=== PATIENT | female | born 1965 | race Two or more races ===

== ENCOUNTER 2017-03-07 12:44 | Emergency (ER) | payer MEDICAID ==
[~2017-03-07] VITALS: Ht 157.5 cm; Wt 52.2 kg
[~2017-03-07 12:44] MED LIST: ACET500C PO; ASPI81TA27 PO; ATO40T PO; DILT240C10 PO; DOCU100T15 PO; FERR325T PO; FLUO20CA19 PO; GABA-339 PO; HYDR-4663 PO; INSUINJ47 IJ; INSUINJ48 SC; LORA-352 PO; OMEP20TA44 PO; TRIA25CA PO; [UNRECOGNIZED DRUG - CODE] PO
[2017-03-07 13:08] VITALS: BP 201/94
== END 2017-03-07 14:30 | disposition home or self-care (01) ==
LOC: ER 12:44
DX: J20.9 Acute bronchitis, unspecified (principal); S90.121A Contusion of right lesser toe(s) without damage to nail, initial encounter; E11.22 Type 2 diabetes mellitus with diabetic chronic kidney disease; I12.9 Hypertensive chronic kidney disease with stage 1 through stage 4 chronic kidney disease, or unspecified chronic kidney disease; N18.9 Chronic kidney disease, unspecified; Z79.4 Long term (current) use of insulin; I25.10 Atherosclerotic heart disease of native coronary artery without angina pectoris; E78.5 Hyperlipidemia, unspecified; Z90.710 Acquired absence of both cervix and uterus; Z79.82 Long term (current) use of aspirin; Z87.442 Personal history of urinary calculi; X58.XXXA Exposure to other specified factors, initial encounter; Y93.89 Activity, other specified; Y99.8 Other external cause status; Y92.89 Other specified places as the place of occurrence of the external cause
CPT/HCPCS: 73660

== ENCOUNTER 2017-08-03 20:34 | Emergency (ER) | payer MEDICAID ==
[~2017-08-03] VITALS: Ht 127 cm; Wt 49.9 kg
[~2017-08-03 20:34] MED LIST changes: -ACET500C PO; -ASPI81TA27 PO; -ATO40T PO; +ATOR20TA50 PO; +B-CO-6 PO; +CALC667C PO; +CARV12.544 PO; +CHOL20007 PO; -DILT240C10 PO; -DOCU100T15 PO; +FER325T PO; +FLUO-125 PO; -FLUO20CA19 PO; +FOLI1TAB6 PO; +FURO20TA3 PO; -GABA-339 PO; -HYDR-4663 PO; -LORA-352 PO; +NIFE90TA30 PO; -OMEP20TA44 PO; +PANT40T PO; -TRIA25CA PO; -[UNRECOGNIZED DRUG - CODE] PO
[2017-08-03] MEDS ORDERED: cloNIDine HCL 0.1 MG TAB ONE (20:51)
[2017-08-03] MEDS ORDERED: cloNIDine HCL 0.1 MG TAB PO ONE (21:15)
[2017-08-03 21:45] VITALS: BP 203/87
[2017-08-03] MEDS ORDERED: HYDROcodone-ACET 10/325MG TAB PO ONE (22:45)
== END 2017-08-03 23:58 | disposition home or self-care (01) ==
LOC: ER 20:34
DX: S90.121A Contusion of right lesser toe(s) without damage to nail, initial encounter (principal); I25.10 Atherosclerotic heart disease of native coronary artery without angina pectoris; E11.22 Type 2 diabetes mellitus with diabetic chronic kidney disease; I12.0 Hypertensive chronic kidney disease with stage 5 chronic kidney disease or end stage renal disease; N18.6 End stage renal disease; E78.5 Hyperlipidemia, unspecified; Z99.2 Dependence on renal dialysis; Z79.4 Long term (current) use of insulin; W23.0XXA Caught, crushed, jammed, or pinched between moving objects, initial encounter; Y93.89 Activity, other specified; Y92.89 Other specified places as the place of occurrence of the external cause; Y99.8 Other external cause status
CPT/HCPCS: 73660; 99284; L3260; 82962

== ENCOUNTER 2017-08-13 08:56 | Emergency (ER) | payer MEDICAID ==
[~2017-08-13] VITALS: Ht 127 cm; Wt 53.8 kg
[2017-08-13 09:32] VITALS: BP 138/9
[2017-08-13] MEDS ORDERED: ACETAMINOPHEN 500 MG TAB PO ONE (11:00)
[2017-08-13] MEDS ORDERED: ACETAMINOPHEN 650 mg PER 20 mL UD PO ONE (11:15)
== END 2017-08-13 11:04 | disposition home or self-care (01) ==
LOC: ER 08:56
DX: S00.11XA Contusion of right eyelid and periocular area, initial encounter (principal); L03.031 Cellulitis of right toe; I12.9 Hypertensive chronic kidney disease with stage 1 through stage 4 chronic kidney disease, or unspecified chronic kidney disease; E11.22 Type 2 diabetes mellitus with diabetic chronic kidney disease; N18.9 Chronic kidney disease, unspecified; Z86.73 Personal history of transient ischemic attack (TIA), and cerebral infarction without residual deficits; E78.5 Hyperlipidemia, unspecified; Z79.899 Other long term (current) drug therapy; Z79.4 Long term (current) use of insulin; W01.0XXA Fall on same level from slipping, tripping and stumbling without subsequent striking against object, initial encounter; Y93.89 Activity, other specified; Y99.8 Other external cause status; Y92.89 Other specified places as the place of occurrence of the external cause
CPT/HCPCS: 70450; 70486

== ENCOUNTER 2017-09-10 17:10 | Emergency (ER) | payer MEDICAID ==
[~2017-09-10] VITALS: Ht 134.6 cm; Wt 49.9 kg
[2017-09-10] MEDS ORDERED: cloNIDine HCL 0.1 MG TAB ONE (17:34)
[2017-09-10] MEDS ORDERED: cloNIDine HCL 0.1 MG TAB PO ONE (17:45)
[2017-09-10 17:56] VITALS: BP 246/102
[2017-09-10] MEDS ORDERED: IBUPROFEN 600 MG TAB PO ONE (22:45)
== END 2017-09-10 22:49 | disposition home or self-care (01) ==
LOC: ER 17:20
DX: J06.9 Acute upper respiratory infection, unspecified (principal); S80.12XA Contusion of left lower leg, initial encounter; I25.10 Atherosclerotic heart disease of native coronary artery without angina pectoris; E11.22 Type 2 diabetes mellitus with diabetic chronic kidney disease; I12.9 Hypertensive chronic kidney disease with stage 1 through stage 4 chronic kidney disease, or unspecified chronic kidney disease; N18.9 Chronic kidney disease, unspecified; E78.5 Hyperlipidemia, unspecified; M25.562 Pain in left knee; W19.XXXA Unspecified fall, initial encounter; Y93.89 Activity, other specified; Y92.89 Other specified places as the place of occurrence of the external cause; Y99.8 Other external cause status
CPT/HCPCS: 73502; 73562; 73610; 73630

== ENCOUNTER 2017-12-13 01:38 | Inpatient (IN) | payer MEDICAID ==
[~2017-12-13] VITALS: Ht 157.5 cm; Wt 58.4 kg
[~2017-12-13 01:38] MED LIST changes: +FERR-20 PO; -FERR325T PO
[2017-12-13 02:30] LABS: Basophils # (auto) 0.1 uL; Eosinophils # (auto) 0.2 uL; Eosinophils % (auto) 2.4 % (0.0-7.0); Hematocrit 33.3 % (36.0-46.0); Hemoglobin 11.1 g/dL (12.2-16.2); Lymphocytes # (auto) 1.2 uL; Lymphocytes % (auto) 15.3 % (10.0-50.0); Mean Corpuscular Hemoglobin 31.4 pg (28.0-32.0); Mean Corpuscular Hgb Conc. 33.3 g/dL (32.0-36.0); Mean Corpuscular Volume 94.4 fL (80.0-100.0); Monocytes # (auto) 0.5 uL; Monocytes % (auto) 6.7 % (0.0-12.0); Neutrophils # (auto) 6.1 uL; Neutrophils % (auto) 74.6 % (37.0-80.0); Platelet Count (auto) 200 10^3/uL (140-450); Red Blood Cells 3.53 10^6/uL (4.0-5.20); Red Cell Distribution Width 15.4 % (11.8-14.3); White Blood Cell 8.2 10^3/uL (4.4-10.8)
[2017-12-13 02:45] LABS: Calcium 9.1 mg/dL (8.5-10.1); Potassium 4.3 mmol/L (3.5-5.1)
[2017-12-13 02:50] LABS: Albumin 3.5 g/dL (3.4-5.0); BUN/Creatinine Ratio 5.9; Magnesium 2.4 mg/dL (1.6-2.6)
[2017-12-13 02:54] LABS: Bilirubin, Total 0.5 mg/dL (0.2-1.0); Total Protein 8.3 g/dL (6.4-8.2)
[2017-12-13] MEDS ORDERED: SODIUM CHLORIDE 0.9% 1,000 ML IV ONE (07:15)
[2017-12-13] MEDS ORDERED: LEVOFLOXACIN 500MG 100 ML IV ONE (07:15)
[2017-12-13] MEDS ORDERED: VANCOMYCIN PER PHARMACY 0 MG IV SCH (07:45)
[2017-12-13] MEDS ORDERED: DEXTROSE (50%) 50ML SYRG IV PRN (07:45)
[2017-12-13] MEDS ORDERED: ALBUTEROL SULF 2.5 MG/0.5ML(0.5%) NEB SOLN NEB PRN (07:45)
[2017-12-13] MEDS ORDERED: NITROGLYCERIN 0.4 MG SL TAB SL PRN (07:45)
[2017-12-13] MEDS ORDERED: LACTULOSE 20Gm/30ML SOLN PO PRN (07:45)
[2017-12-13] MEDS ORDERED: MORPHINE SULFATE 4 MG/ML SYR/VIAL IV PRN ×2 (07:45→08:45)
[2017-12-13] MEDS ORDERED: PIPERACILLIN-TAZOB 2.25GM 50 ML IV ONE (08:45)
[2017-12-13] MEDS ORDERED: PROMETHAZINE HCL 25 MG/ML 1ML IV PRN (08:45)
[2017-12-13] MEDS ORDERED: LORazepam 0.5 MG TAB PO PRN (08:45)
[2017-12-13] MEDS ORDERED: TEMAZEPAM 15 MG CAP PO PRN (08:45)
[2017-12-13] MEDS ORDERED: ACETAMINOPHEN 500 MG TAB PO PRN (08:45)
[2017-12-13 08:55] VITALS: BP 143/71
[2017-12-13 09:05] VITALS: BP 155/70
[2017-12-13] MEDS ORDERED: OSELTAMIVIR 30 MG CAP PO SCH (10:00)
[2017-12-13] MEDS ORDERED: PATIENTS OWN MEDICATION (Cholecalciferol (Vitamin D3) 1,000 UNIT) PO SCH (10:00)
[2017-12-13] MEDS ORDERED: PATIENTS OWN MEDICATION (Ferrous Sulfate 325 MG) PO SCH (10:00)
[2017-12-13] MEDS: AZITHROMYCIN 500MG/ 250ML 250 ML IV SCH (10:14)
[2017-12-13] MEDS: FOLIC ACID 1 MG TAB PO SCH (10:15)
[2017-12-13] MEDS: FUROSEMIDE 20 MG TAB PO SCH ×2 (10:15→18:00)
[2017-12-13] MEDS: CARVEDILOL 12.5 MG TAB PO SCH ×2 (10:15→22:25)
[2017-12-13] MEDS: PANTOPRAZOLE 40 MG TAB PO SCH ×2 (10:15→22:24)
[2017-12-13] MEDS: B-COMPLEX W/ C & FOLIC ACID(NEPHROVITE TAB) PO SCH (10:15)
[2017-12-13] MEDS: CHOLECALCIFEROL (VITD3) 1,000 UNIT TAB PO SCH (10:16)
[2017-12-13] MEDS: ENOXAPARIN SOD 30 MG/0.3 ML SYRINGE SC SCH (10:16)
[2017-12-13] MEDS: FLUoxetine HCL 20 MG CAP PO SCH (10:16)
[2017-12-13] MEDS: InsuLIN REG 1unit/0.01ml Soln (100units/ml) SC SCH ×3 (11:21→22:00)
[2017-12-13] MEDS: ACCU-CHEK COMFORT CURVE STRIP VI SCH ×3 (11:21→22:00)
[2017-12-13] MEDS ORDERED: ACETAMINOPHEN 500 MG TAB PO ONE (12:00)
[2017-12-13] MEDS ORDERED: VANCOMYCIN 1GM/250ML 250 ML IV ONE (12:00)
[2017-12-13] MEDS: ALBUTEROL SULF 2.5 MG/0.5ML(0.5%) NEB SOLN NEB SCH ×2 (12:10→18:00)
[2017-12-13] MEDS: CALCIUM ACETATE 667 MG CAP PO SCH ×2 (12:25→18:00)
[2017-12-13] MEDS: SODIUM CHLOR 0.9% PF (SALINE LOCK) 10ML VIAL IV SCH ×2 (14:03→22:24)
[2017-12-13] MEDS: FERROUS SULFATE 325 MG TAB PO SCH (18:00)
[2017-12-13] MEDS: LABETALOL HCL 5 MG/ML ML 20ML VIAL IV PRN (19:30)
[2017-12-13 20:00] VITALS: BP 163/75
[2017-12-13] MEDS: PIPERACILLIN-TAZOB 2.25GM 50 ML IV SCH (20:01)
[2017-12-13] MEDS: HYDROcodone-ACET 5/325MG TAB PO PRN (20:02)
[2017-12-13 21:39] VITALS: BP 163/75
[2017-12-13] MEDS ORDERED: PATIENTS OWN MEDICATION (Nifedipine (Nifedipine Er) 1 TAB) PO SCH (22:00)
[2017-12-13] MEDS: ATORVASTATIN 20 MG TAB PO SCH (22:25)
[2017-12-13] MEDS: NIFEdipine ER 30 MG TAB PO SCH (22:26)
[2017-12-14] VITALS (7 sets, daily range): BP systolic 108–140; BP diastolic 61–70
[2017-12-14] MEDS: ALBUTEROL SULF 2.5 MG/0.5ML(0.5%) NEB SOLN NEB SCH ×4 (00:34→18:28)
[2017-12-14] MEDS: LABETALOL HCL 5 MG/ML ML 20ML VIAL IV PRN ×2 (01:43→23:54)
[2017-12-14] MEDS: HYDROcodone-ACET 5/325MG TAB PO PRN ×3 (02:31→21:52)
[2017-12-14 06:17] LABS: Basophils # (auto) 0.1 uL; Basophils % (auto) 0.7 % (0.0-2.0); Eosinophils # (auto) 0.2 uL; Eosinophils % (auto) 2.9 % (0.0-7.0); Hematocrit 30.3 % (36.0-46.0); Hemoglobin 10.1 g/dL (12.2-16.2); Lymphocytes # (auto) 1.2 uL; Lymphocytes % (auto) 14.4 % (10.0-50.0); Mean Corpuscular Hemoglobin 31.6 pg (28.0-32.0); Mean Corpuscular Hgb Conc. 33.5 g/dL (32.0-36.0); Mean Corpuscular Volume 94.3 fL (80.0-100.0); Monocytes # (auto) 0.5 uL; Monocytes % (auto) 6.4 % (0.0-12.0); Neutrophils # (auto) 6.3 uL; Neutrophils % (auto) 75.6 % (37.0-80.0); Nucleated Red Blood Cells % 0.1 %; Platelet Count (auto) 198 10^3/uL (140-450); Red Blood Cells 3.21 10^6/uL (4.0-5.20); Red Cell Distribution Width 14.9 % (11.8-14.3); White Blood Cell 8.3 10^3/uL (4.4-10.8)
[2017-12-14] MEDS: InsuLIN REG 1unit/0.01ml Soln (100units/ml) SC SCH ×4 (06:29→21:58)
[2017-12-14] MEDS: SODIUM CHLOR 0.9% PF (SALINE LOCK) 10ML VIAL IV SCH ×3 (06:29→21:51)
[2017-12-14] MEDS: FUROSEMIDE 20 MG TAB PO SCH ×2 (06:29→17:37)
[2017-12-14] MEDS: ACCU-CHEK COMFORT CURVE STRIP VI SCH ×4 (06:29→21:57)
[2017-12-14 06:36] LABS: Albumin 3.1 g/dL (3.4-5.0); BUN/Creatinine Ratio 6.7; Bilirubin, Total 0.7 mg/dL (0.2-1.0); Calcium 8.9 mg/dL (8.5-10.1); Total Protein 7.5 g/dL (6.4-8.2)
[2017-12-14] MEDS: PIPERACILLIN-TAZOB 2.25GM 50 ML IV SCH ×2 (09:17→20:12)
[2017-12-14] MEDS: FERROUS SULFATE 325 MG TAB PO SCH ×2 (09:17→17:37)
[2017-12-14] MEDS: CALCIUM ACETATE 667 MG CAP PO SCH ×3 (09:17→17:37)
[2017-12-14] MEDS: ENOXAPARIN SOD 30 MG/0.3 ML SYRINGE SC SCH (10:28)
[2017-12-14] MEDS: FLUoxetine HCL 20 MG CAP PO SCH (10:29)
[2017-12-14] MEDS: AZITHROMYCIN 500MG/ 250ML 250 ML IV SCH (10:29)
[2017-12-14] MEDS: CHOLECALCIFEROL (VITD3) 1,000 UNIT TAB PO SCH (10:29)
[2017-12-14] MEDS: PANTOPRAZOLE 40 MG TAB PO SCH ×2 (10:29→21:51)
[2017-12-14] MEDS: CARVEDILOL 12.5 MG TAB PO SCH ×2 (10:29→21:53)
[2017-12-14] MEDS: B-COMPLEX W/ C & FOLIC ACID(NEPHROVITE TAB) PO SCH (10:30)
[2017-12-14] MEDS: FOLIC ACID 1 MG TAB PO SCH (10:30)
[2017-12-14] MEDS: ATORVASTATIN 20 MG TAB PO SCH (21:52)
[2017-12-14] MEDS: NIFEdipine ER 30 MG TAB PO SCH (21:53)
[2017-12-15] MEDS: ALBUTEROL SULF 2.5 MG/0.5ML(0.5%) NEB SOLN NEB SCH ×3 (00:17→12:01)
[2017-12-15] MEDS: HYDROcodone-ACET 5/325MG TAB PO PRN ×2 (04:03→11:25)
[2017-12-15 05:00] VITALS: BP 146/67
[2017-12-15 05:39] LABS: Albumin 2.9 g/dL (3.4-5.0); BUN/Creatinine Ratio 6.7; Potassium 4.8 mmol/L (3.5-5.1)
[2017-12-15 05:42] LABS: Bilirubin, Total 0.6 mg/dL (0.2-1.0)
[2017-12-15] MEDS: SODIUM CHLOR 0.9% PF (SALINE LOCK) 10ML VIAL IV SCH ×2 (06:00→13:56)
[2017-12-15] MEDS: ACCU-CHEK COMFORT CURVE STRIP VI SCH ×2 (06:54→11:25)
[2017-12-15] MEDS: FUROSEMIDE 20 MG TAB PO SCH (06:54)
[2017-12-15] MEDS: InsuLIN REG 1unit/0.01ml Soln (100units/ml) SC SCH ×2 (06:56→11:25)
[2017-12-15] MEDS: PIPERACILLIN-TAZOB 2.25GM 50 ML IV SCH (08:41)
[2017-12-15] MEDS: FERROUS SULFATE 325 MG TAB PO SCH (08:41)
[2017-12-15] MEDS: CALCIUM ACETATE 667 MG CAP PO SCH ×2 (08:41→11:26)
[2017-12-15 09:00] VITALS: BP 136/68
[2017-12-15] MEDS: FLUoxetine HCL 20 MG CAP PO SCH (09:53)
[2017-12-15] MEDS: AZITHROMYCIN 500MG/ 250ML 250 ML IV SCH (09:53)
[2017-12-15] MEDS: B-COMPLEX W/ C & FOLIC ACID(NEPHROVITE TAB) PO SCH (09:53)
[2017-12-15] MEDS: PANTOPRAZOLE 40 MG TAB PO SCH (09:53)
[2017-12-15] MEDS: CHOLECALCIFEROL (VITD3) 1,000 UNIT TAB PO SCH (09:53)
[2017-12-15] MEDS: FOLIC ACID 1 MG TAB PO SCH (09:53)
[2017-12-15] MEDS: ENOXAPARIN SOD 30 MG/0.3 ML SYRINGE SC SCH (09:53)
[2017-12-15] MEDS: CARVEDILOL 12.5 MG TAB PO SCH (09:54)
[2017-12-15 11:50] VITALS: BP 136/68
[2017-12-16 09:56] LABS: Hepatitis B Surface Antibody Positive
[2017-12-16 10:05] LABS: Hepatitis B Surface Antigen Negative (Negative)
[2017-12-16 10:33] LABS: Hepatitis A Total Antibody Positive; Hepatitis C Antibody Negative (Negative)
[2017-12-16 10:34] LABS: Hepatitis B Core Total AB Negative
== END 2017-12-15 14:25 | disposition home or self-care (01) | DRG 139 ==
LOC: ER 01:38 → TELE-WESTW 01:39
PROVIDERS: ADMIT Internal Medicine; ATTEND Internal Medicine
DX: J18.1 Lobar pneumonia, unspecified organism (principal); N18.6 End stage renal disease; E11.22 Type 2 diabetes mellitus with diabetic chronic kidney disease; D63.8 Anemia in other chronic diseases classified elsewhere; I13.11 Hypertensive heart and chronic kidney disease without heart failure, with stage 5 chronic kidney disease, or end stage renal disease; E87.8 Other disorders of electrolyte and fluid balance, not elsewhere classified; E11.65 Type 2 diabetes mellitus with hyperglycemia; E78.5 Hyperlipidemia, unspecified; E87.1 Hypo-osmolality and hyponatremia; F32.9 Major depressive disorder, single episode, unspecified; K59.00 Constipation, unspecified; F41.9 Anxiety disorder, unspecified; G47.00 Insomnia, unspecified; I25.10 Atherosclerotic heart disease of native coronary artery without angina pectoris; N20.0 Calculus of kidney; Z82.49 Family history of ischemic heart disease and other diseases of the circulatory system; Z82.5 Family history of asthma and other chronic lower respiratory diseases; Z83.3 Family history of diabetes mellitus; Z99.2 Dependence on renal dialysis; Z90.49 Acquired absence of other specified parts of digestive tract; Z79.899 Other long term (current) drug therapy; Z79.4 Long term (current) use of insulin
CPT/HCPCS: 36415; 71045; 76705; 80053; 80061; 80202; 82962; 83036; 83605; 83735; 84484; 85025; 86704; 86706; 86708; 86803; 87040; 87340; 87804; 93005; 94640; 96365; 96366; 96367; 99291; J1815; J1956; J2543

== ENCOUNTER 2018-01-06 14:56 | Inpatient (IN) | payer MEDICAID ==
[~2018-01-06] VITALS: Ht 152.4 cm; Wt 56.2 kg
[2018-01-06 16:35] LABS: Basophils # (auto) 0 uL; Basophils % (auto) 0.6 % (0.0-2.0); Eosinophils # (auto) 0.1 uL; Hematocrit 28.1 % (36.0-46.0); Hemoglobin 9.4 g/dL (12.2-16.2); Lymphocytes # (auto) 1.1 uL; Lymphocytes % (auto) 17.4 % (10.0-50.0); Mean Corpuscular Hemoglobin 31.8 pg (28.0-32.0); Mean Corpuscular Hgb Conc. 33.4 g/dL (32.0-36.0); Mean Corpuscular Volume 95.2 fL (80.0-100.0); Monocytes # (auto) 0.5 uL; Monocytes % (auto) 8.1 % (0.0-12.0); Neutrophils # (auto) 4.6 uL; Neutrophils % (auto) 71.9 % (37.0-80.0); Platelet Count (auto) 178 10^3/uL (140-450); Red Blood Cells 2.95 10^6/uL (4.0-5.20); Red Cell Distribution Width 15.5 % (11.8-14.3); White Blood Cell 6.4 10^3/uL (4.4-10.8)
[2018-01-06 16:50] LABS: INR 1.05 (0.9-1.15); Partial Thromboplastin Time 28.9 sec (22.64-33.71); Prothrombin Time 11.4 sec (9.37-12.3)
[2018-01-06 16:59] LABS: Albumin 3.2 g/dL (3.4-5.0); BUN/Creatinine Ratio 5.5; Bilirubin, Total 0.7 mg/dL (0.2-1.0); Calcium 9.2 mg/dL (8.5-10.1); Potassium 4.8 mmol/L (3.5-5.1); Total Protein 7.2 g/dL (6.4-8.2)
[2018-01-06] MEDS ORDERED: cefTRIAXone 1GM/10ml IVPUSH 10 ML IV ONE (18:30)
[2018-01-06] MEDS ORDERED: PANTOPRAZOLE 40 MG/10 ML VIAL IV ONE (18:30)
[2018-01-06] MEDS ORDERED: FAMOTIDINE (10MG/ML) 2ML VL IV ONE (18:30)
[2018-01-06] MEDS ORDERED: DEXTROSE (50%) 50ML SYRG IV PRN (18:30)
[2018-01-06] MEDS ORDERED: TEMAZEPAM 15 MG CAP PO PRN (19:30)
[2018-01-06] MEDS ORDERED: NITROGLYCERIN 0.4 MG SL TAB SL PRN (19:30)
[2018-01-06] MEDS ORDERED: ACETAMINOPHEN 325 MG TAB PO PRN (19:30)
[2018-01-06] MEDS ORDERED: MORPHINE SULFATE 4 MG/ML SYR/VIAL IV PRN (19:30)
[2018-01-06] MEDS: MORPHINE SULFATE 4 MG/ML SYR/VIAL IV PRN (20:20)
[2018-01-06] MEDS: ONDANSETRON HCL 4 MG/2 ML VIAL IV PRN (20:30)
[2018-01-06] MEDS: SODIUM CHLORIDE 0.9% 1,000 ML IV SCH (20:50)
[2018-01-06] MEDS: CARVEDILOL 12.5 MG TAB PO SCH (21:02)
[2018-01-06] MEDS: NIFEdipine ER 30 MG TAB PO SCH (21:03)
[2018-01-06] MEDS: ATORVASTATIN 20 MG TAB PO SCH (21:03)
[2018-01-06] MEDS ORDERED: cloNIDine HCL 0.1 MG TAB PO ONE (21:30)
[2018-01-06] MEDS: ACCU-CHEK COMFORT CURVE STRIP VI SCH (22:00)
[2018-01-06] MEDS: InsuLIN REG 1unit/0.01ml Soln (100units/ml) SC SCH (22:00)
[2018-01-06] MEDS: metroNIDAZOLE 500MG/100ML 100 ML IV SCH (23:57)
[2018-01-07] MEDS: MORPHINE SULFATE 4 MG/ML SYR/VIAL IV PRN ×2 (00:33→20:03)
[2018-01-07] MEDS: FUROSEMIDE 20 MG TAB PO SCH ×2 (05:28→17:07)
[2018-01-07] MEDS: HYDROcodone-ACET 5/325MG TAB PO PRN ×3 (05:29→23:42)
[2018-01-07 05:30] VITALS: BP 95/55
[2018-01-07] MEDS: metroNIDAZOLE 500MG/100ML 100 ML IV SCH (05:44)
[2018-01-07] MEDS: INSULIN NPH Isophane (HUMAN) 1unit/0.01ml Susp(100units/ml) SC SCH ×2 (07:00→17:08)
[2018-01-07] MEDS: InsuLIN REG 1unit/0.01ml Soln (100units/ml) SC SCH ×6 (07:00→22:00)
[2018-01-07 07:03] LABS: Basophils # (auto) 0.1 uL; Eosinophils # (auto) 0.2 uL; Hemoglobin 8.1 g/dL (12.2-16.2); Lymphocytes # (auto) 1.7 uL; Neutrophils # (auto) 2.6 uL
[2018-01-07 07:07] LABS: Basophils % (auto) 1.2 % (0.0-2.0); Eosinophils % (auto) 4.8 % (0.0-7.0); Hematocrit 24.4 % (36.0-46.0); Lymphocytes % (auto) 33.1 % (10.0-50.0); Mean Corpuscular Hemoglobin 31.8 pg (28.0-32.0); Mean Corpuscular Hgb Conc. 33.3 g/dL (32.0-36.0); Mean Corpuscular Volume 95.5 fL (80.0-100.0); Monocytes # (auto) 0.5 uL; Monocytes % (auto) 9.1 % (0.0-12.0); Neutrophils % (auto) 51.8 % (37.0-80.0); Nucleated Red Blood Cells % 0.1 %; Platelet Count (auto) 163 10^3/uL (140-450); Red Blood Cells 2.56 10^6/uL (4.0-5.20); Red Cell Distribution Width 15.5 % (11.8-14.3)
[2018-01-07] MEDS: ACCU-CHEK COMFORT CURVE STRIP VI SCH ×4 (07:08→22:11)
[2018-01-07 07:28] LABS: Albumin 2.7 g/dL (3.4-5.0); BUN/Creatinine Ratio 5.9; Bilirubin, Total 0.5 mg/dL (0.2-1.0); Potassium 4.6 mmol/L (3.5-5.1); Total Protein 6.1 g/dL (6.4-8.2)
[2018-01-07] MEDS: Boost Glucose Control 8 Ounces PO SCH ×2 (08:00→12:00)
[2018-01-07] MEDS ORDERED: cefTRIAXone 1GM/10ml IVPUSH 10 ML IV SCH (09:00)
[2018-01-07 09:27] VITALS: BP 88/49
[2018-01-07] MEDS ORDERED: PANTOPRAZOLE 40 MG/10 ML VIAL IV SCH (10:00)
[2018-01-07] MEDS: FAMOTIDINE (10MG/ML) 2ML VL IV SCH (10:00)
[2018-01-07] MEDS: CARVEDILOL 12.5 MG TAB PO SCH ×2 (10:00→22:17)
[2018-01-07] MEDS: FLUoxetine HCL 20 MG CAP PO SCH (10:05)
[2018-01-07] MEDS: CHOLECALCIFEROL (VITD3) 1,000 UNIT TAB PO SCH (10:05)
[2018-01-07] MEDS: MULTIPLE VITAMIN TAB PO SCH (10:06)
[2018-01-07] MEDS: FOLIC ACID 1 MG TAB PO SCH (10:06)
[2018-01-07] MEDS: B-COMPLEX W/ C & FOLIC ACID(NEPHROVITE TAB) PO SCH (10:06)
[2018-01-07] MEDS: FERROUS SULFATE 325 MG TAB PO SCH ×2 (10:12→17:59)
[2018-01-07] MEDS: CALCIUM ACETATE 667 MG CAP PO SCH ×3 (10:12→17:59)
[2018-01-07 10:15] VITALS: BP 102/58
[2018-01-07] MEDS: ONDANSETRON HCL 4 MG/2 ML VIAL IV PRN (10:54)
[2018-01-07] MEDS: SODIUM CHLORIDE 0.9% 1,000 ML IV SCH (12:07)
[2018-01-07 13:10] VITALS: BP 105/62
[2018-01-07 16:54] VITALS: BP 103/57
[2018-01-07 21:24] LABS: Urine Bacteria NONE SEEN /hpf (None Seen); Urine Blood Negative /uL (Negative); Urine Mucus FEW (None Seen); Urine Specific Gravity 1.016 (1.001-1.035); Urine WBC 8 /hpf (0 - 5)
[2018-01-07 22:00] VITALS: BP 127/62
[2018-01-07] MEDS: NIFEdipine ER 30 MG TAB PO SCH (22:00)
[2018-01-07] MEDS: ATORVASTATIN 20 MG TAB PO SCH (22:17)
[2018-01-07] MEDS: PANTOPRAZOLE 40 MG TAB PO SCH (22:18)
[2018-01-08] VITALS (7 sets, daily range): BP systolic 126–205; BP diastolic 66–92
[2018-01-08] MEDS: cloNIDine HCL 0.1 MG TAB PO PRN ×3 (04:38→18:04)
[2018-01-08] MEDS: HYDROcodone-ACET 5/325MG TAB PO PRN ×3 (04:39→20:07)
[2018-01-08] MEDS: SODIUM CHLORIDE 0.9% 1,000 ML IV SCH ×2 (04:47→21:27)
[2018-01-08] MEDS: InsuLIN REG 1unit/0.01ml Soln (100units/ml) SC SCH ×6 (06:39→22:00)
[2018-01-08] MEDS: ACCU-CHEK COMFORT CURVE STRIP VI SCH ×4 (06:40→22:48)
[2018-01-08] MEDS: INSULIN NPH Isophane (HUMAN) 1unit/0.01ml Susp(100units/ml) SC SCH ×2 (06:40→18:00)
[2018-01-08] MEDS: FUROSEMIDE 20 MG TAB PO SCH ×2 (06:53→18:27)
[2018-01-08] MEDS: CALCIUM ACETATE 667 MG CAP PO SCH ×3 (08:00→18:27)
[2018-01-08] MEDS: FERROUS SULFATE 325 MG TAB PO SCH ×2 (08:00→18:27)
[2018-01-08] MEDS: CARVEDILOL 12.5 MG TAB PO SCH ×2 (08:21→22:46)
[2018-01-08] MEDS ORDERED: FLUMAZENIL 0.1 MG/ML INJ 10ML MDV IV ONE (08:37)
[2018-01-08] MEDS ORDERED: NALOXONE HCL 0.4 MG/ML VIAL ONE (08:37)
[2018-01-08] MEDS ORDERED: LIDOCAINE VISCOUS 2% 15ML UD ONE (08:37)
[2018-01-08] MEDS ORDERED: diphenhdrAMINE HCL 50 MG/1 ML VL ONE (08:37)
[2018-01-08] MEDS: FAMOTIDINE (10MG/ML) 2ML VL IV SCH (10:00)
[2018-01-08] MEDS: CHOLECALCIFEROL (VITD3) 1,000 UNIT TAB PO SCH (10:00)
[2018-01-08] MEDS: FLUoxetine HCL 20 MG CAP PO SCH (10:00)
[2018-01-08] MEDS: B-COMPLEX W/ C & FOLIC ACID(NEPHROVITE TAB) PO SCH (10:00)
[2018-01-08] MEDS: PANTOPRAZOLE 40 MG TAB PO SCH ×2 (10:00→22:46)
[2018-01-08] MEDS: FOLIC ACID 1 MG TAB PO SCH (10:00)
[2018-01-08] MEDS: MULTIPLE VITAMIN TAB PO SCH (10:00)
[2018-01-08] MEDS ORDERED: NIFEdipine ER 30 MG TAB PO ONE (10:15)
[2018-01-08] MEDS ORDERED: EPOETIN ALFA 10,000 UNIT/1 ML VIAL IV ONE (11:30)
[2018-01-08] MEDS ORDERED: HEPARIN 1,000 UNITS/ml 1ML VIAL IV ONE (11:30)
[2018-01-08] MEDS ORDERED: MORPHINE SULFATE 8mg/ml INJ SDV IV PRN (18:15)
[2018-01-08] MEDS: MORPHINE SULFATE 8mg/ml INJ SDV IV PRN (18:19)
[2018-01-08] MEDS: NIFEdipine ER 30 MG TAB PO SCH (22:45)
[2018-01-08] MEDS: ATORVASTATIN 20 MG TAB PO SCH (22:45)
[2018-01-09 05:22] VITALS: BP 108/55
[2018-01-09] MEDS: FUROSEMIDE 20 MG TAB PO SCH ×2 (06:00→17:59)
[2018-01-09 06:36] LABS: Basophils # (auto) 0 uL; Basophils % (auto) 0.7 % (0.0-2.0); Eosinophils # (auto) 0.1 uL; Eosinophils % (auto) 2.5 % (0.0-7.0); Hematocrit 27.1 % (36.0-46.0); Lymphocytes # (auto) 0.8 uL; Mean Corpuscular Hemoglobin 31.1 pg (28.0-32.0); Mean Corpuscular Volume 94.1 fL (80.0-100.0); Monocytes # (auto) 0.4 uL; Monocytes % (auto) 7.3 % (0.0-12.0); Neutrophils # (auto) 3.8 uL; Neutrophils % (auto) 74.5 % (37.0-80.0); Platelet Count (auto) 167 10^3/uL (140-450); Red Blood Cells 2.88 10^6/uL (4.0-5.20); Red Cell Distribution Width 14.8 % (11.8-14.3); White Blood Cell 5.1 10^3/uL (4.4-10.8)
[2018-01-09 06:53] LABS: BUN/Creatinine Ratio 5.4; Calcium 8.3 mg/dL (8.5-10.1); Potassium 4.7 mmol/L (3.5-5.1)
[2018-01-09] MEDS: ACCU-CHEK COMFORT CURVE STRIP VI SCH ×3 (07:00→17:00)
[2018-01-09] MEDS: InsuLIN REG 1unit/0.01ml Soln (100units/ml) SC SCH ×6 (07:00→21:43)
[2018-01-09] MEDS: INSULIN NPH Isophane (HUMAN) 1unit/0.01ml Susp(100units/ml) SC SCH ×2 (07:00→18:00)
[2018-01-09] MEDS: CALCIUM ACETATE 667 MG CAP PO SCH ×3 (08:00→17:57)
[2018-01-09] MEDS: FERROUS SULFATE 325 MG TAB PO SCH ×2 (08:00→17:57)
[2018-01-09] MEDS ORDERED: NALOXONE HCL 0.4 MG/ML VIAL ONE (08:34)
[2018-01-09] MEDS ORDERED: FLUMAZENIL 0.1 MG/ML INJ 10ML MDV IV ONE (08:34)
[2018-01-09] MEDS ORDERED: LIDOCAINE VISCOUS 2% 15ML UD ONE (08:34)
[2018-01-09] MEDS ORDERED: MIDAZOLAM HCL 5 MG/ML-1ML VIAL ONE (08:35)
[2018-01-09] MEDS ORDERED: diphenhdrAMINE HCL 50 MG/1 ML VL ONE (08:35)
[2018-01-09] MEDS ORDERED: fentaNYL CITRATE 100 MCG/2 ML VL ONE (08:35)
[2018-01-09 09:00] VITALS: BP 120/64
[2018-01-09] MEDS: fentaNYL CITRATE 100 MCG/2 ML VL ONE ×2 (09:22→09:29)
[2018-01-09] MEDS: MIDAZOLAM HCL 5 MG/ML-1ML VIAL ONE ×2 (09:22→09:29)
[2018-01-09] MEDS ORDERED: METOCLOPRAMIDE HCL 5MG/ml INJ 2ml VIAL IV SCH (10:00)
[2018-01-09] MEDS: B-COMPLEX W/ C & FOLIC ACID(NEPHROVITE TAB) PO SCH (11:18)
[2018-01-09] MEDS: FOLIC ACID 1 MG TAB PO SCH (11:19)
[2018-01-09] MEDS: CARVEDILOL 12.5 MG TAB PO SCH ×2 (11:19→21:40)
[2018-01-09] MEDS: PANTOPRAZOLE 40 MG TAB PO SCH ×2 (11:20→21:40)
[2018-01-09] MEDS: CHOLECALCIFEROL (VITD3) 1,000 UNIT TAB PO SCH (11:20)
[2018-01-09] MEDS: FLUoxetine HCL 20 MG CAP PO SCH (11:20)
[2018-01-09] MEDS: MULTIPLE VITAMIN TAB PO SCH (11:20)
[2018-01-09] MEDS: METOCLOPRAMIDE HCL 10 MG TAB PO PRN (11:40)
[2018-01-09] MEDS: HYDROcodone-ACET 5/325MG TAB PO PRN ×2 (11:41→16:39)
[2018-01-09 13:00] VITALS: BP 142/69
[2018-01-09] MEDS: SODIUM CHLORIDE 0.9% 1,000 ML IV SCH (14:07)
[2018-01-09 17:49] VITALS: BP 85/49
[2018-01-09] MEDS: MORPHINE SULFATE 8mg/ml INJ SDV IV PRN (21:31)
[2018-01-09] MEDS: ATORVASTATIN 20 MG TAB PO SCH (21:40)
[2018-01-09] MEDS: NIFEdipine ER 30 MG TAB PO SCH (21:43)
[2018-01-09 22:00] VITALS: BP 109/55
[2018-01-10] VITALS (7 sets, daily range): BP systolic 132–195; BP diastolic 66–85
[2018-01-10] MEDS: ACCU-CHEK COMFORT CURVE STRIP VI SCH ×5 (04:30→22:13)
[2018-01-10] MEDS: MORPHINE SULFATE 8mg/ml INJ SDV IV PRN ×3 (04:48→14:48)
[2018-01-10] MEDS: FUROSEMIDE 20 MG TAB PO SCH ×2 (05:46→18:01)
[2018-01-10] MEDS: SODIUM CHLORIDE 0.9% 1,000 ML IV SCH ×2 (06:47→23:27)
[2018-01-10] MEDS: InsuLIN REG 1unit/0.01ml Soln (100units/ml) SC SCH ×6 (06:51→22:13)
[2018-01-10] MEDS: INSULIN NPH Isophane (HUMAN) 1unit/0.01ml Susp(100units/ml) SC SCH ×2 (06:52→17:14)
[2018-01-10 07:20] LABS: Basophils # (auto) 0 uL; Basophils % (auto) 0.6 % (0.0-2.0); Eosinophils # (auto) 0.1 uL; Eosinophils % (auto) 2.4 % (0.0-7.0); Hematocrit 25.9 % (36.0-46.0); Hemoglobin 8.7 g/dL (12.2-16.2); Lymphocytes # (auto) 1.3 uL; Lymphocytes % (auto) 25.1 % (10.0-50.0); Mean Corpuscular Hemoglobin 31.9 pg (28.0-32.0); Mean Corpuscular Hgb Conc. 33.4 g/dL (32.0-36.0); Mean Corpuscular Volume 95.4 fL (80.0-100.0); Monocytes # (auto) 0.5 uL; Monocytes % (auto) 9.9 % (0.0-12.0); Neutrophils # (auto) 3.2 uL; Nucleated Red Blood Cells % 0.1 %; Platelet Count (auto) 155 10^3/uL (140-450); Red Blood Cells 2.72 10^6/uL (4.0-5.20); Red Cell Distribution Width 14.9 % (11.8-14.3); White Blood Cell 5.2 10^3/uL (4.4-10.8)
[2018-01-10 07:27] LABS: BUN/Creatinine Ratio 6.1; Calcium 8.6 mg/dL (8.5-10.1)
[2018-01-10 07:33] LABS: Potassium 5.7 mmol/L (3.5-5.1)
[2018-01-10] MEDS: CALCIUM ACETATE 667 MG CAP PO SCH ×3 (08:20→18:01)
[2018-01-10] MEDS: FERROUS SULFATE 325 MG TAB PO SCH ×2 (08:20→18:00)
[2018-01-10] MEDS: FOLIC ACID 1 MG TAB PO SCH (09:27)
[2018-01-10] MEDS: B-COMPLEX W/ C & FOLIC ACID(NEPHROVITE TAB) PO SCH (09:27)
[2018-01-10] MEDS: MULTIPLE VITAMIN TAB PO SCH (09:27)
[2018-01-10] MEDS: PANTOPRAZOLE 40 MG TAB PO SCH ×2 (09:28→22:12)
[2018-01-10] MEDS: FLUoxetine HCL 20 MG CAP PO SCH (09:28)
[2018-01-10] MEDS: CHOLECALCIFEROL (VITD3) 1,000 UNIT TAB PO SCH (09:28)
[2018-01-10] MEDS: METOCLOPRAMIDE HCL 10 MG TAB PO PRN (09:29)
[2018-01-10] MEDS: CARVEDILOL 12.5 MG TAB PO SCH ×2 (10:00→22:11)
[2018-01-10] MEDS ORDERED: EPOETIN ALFA 10,000 UNIT/1 ML VIAL IV ONE (13:30)
[2018-01-10] MEDS ORDERED: SODIUM CHL 0.9% 1000 ML BAG XX ONE (13:30)
[2018-01-10] MEDS: cloNIDine HCL 0.1 MG TAB PO PRN (18:02)
[2018-01-10] MEDS: ATORVASTATIN 20 MG TAB PO SCH (22:11)
[2018-01-10] MEDS: NIFEdipine ER 30 MG TAB PO SCH (22:12)
[2018-01-10] MEDS: HYDROcodone-ACET 5/325MG TAB PO PRN (22:12)
[2018-01-11 00:30] VITALS: BP 193/88
[2018-01-11] MEDS: cloNIDine HCL 0.1 MG TAB PO PRN ×2 (00:55→01:01)
[2018-01-11] MEDS: MORPHINE SULFATE 8mg/ml INJ SDV IV PRN (01:02)
[2018-01-11 01:50] VITALS: BP 208/98
[2018-01-11 02:00] VITALS: BP 200/90
[2018-01-11] MEDS ORDERED: LABETALOL HCL 5 MG/ML ML 20ML VIAL IV ONE (02:15)
[2018-01-11] MEDS ORDERED: LABETALOL HCL 5 MG/ML 4ML SYRINGE IV ONE (02:35)
[2018-01-11 05:00] VITALS: BP 178/80
[2018-01-11] MEDS: FUROSEMIDE 20 MG TAB PO SCH (06:46)
[2018-01-11] MEDS: InsuLIN REG 1unit/0.01ml Soln (100units/ml) SC SCH ×2 (07:00→08:00)
[2018-01-11] MEDS: INSULIN NPH Isophane (HUMAN) 1unit/0.01ml Susp(100units/ml) SC SCH (07:08)
[2018-01-11] MEDS: ACCU-CHEK COMFORT CURVE STRIP VI SCH (07:09)
[2018-01-11 07:32] LABS: Basophils # (auto) 0 uL; Basophils % (auto) 0.7 % (0.0-2.0); Eosinophils # (auto) 0.1 uL; Eosinophils % (auto) 2.1 % (0.0-7.0); Hematocrit 26.3 % (36.0-46.0); Hemoglobin 8.8 g/dL (12.2-16.2); Lymphocytes # (auto) 1.3 uL; Lymphocytes % (auto) 23.3 % (10.0-50.0); Mean Corpuscular Hemoglobin 31.6 pg (28.0-32.0); Mean Corpuscular Hgb Conc. 33.4 g/dL (32.0-36.0); Mean Corpuscular Volume 94.6 fL (80.0-100.0); Monocytes # (auto) 0.5 uL; Monocytes % (auto) 8.2 % (0.0-12.0); Neutrophils # (auto) 3.7 uL; Neutrophils % (auto) 65.7 % (37.0-80.0); Platelet Count (auto) 164 10^3/uL (140-450); Red Blood Cells 2.79 10^6/uL (4.0-5.20); Red Cell Distribution Width 14.9 % (11.8-14.3); White Blood Cell 5.6 10^3/uL (4.4-10.8)
[2018-01-11 08:22] VITALS: BP 152/76
[2018-01-11 08:43] LABS: BUN/Creatinine Ratio 5.1; Calcium 8.8 mg/dL (8.5-10.1); Potassium 4.9 mmol/L (3.5-5.1)
[2018-01-11] MEDS: FERROUS SULFATE 325 MG TAB PO SCH (08:43)
[2018-01-11] MEDS: CALCIUM ACETATE 667 MG CAP PO SCH (08:43)
[2018-01-11 09:00] LABS: Bilirubin, Direct 0.1 mg/dL (0-0.2); Bilirubin, Total 0.4 mg/dL (0.2-1.0); Total Protein 7.1 g/dL (6.4-8.2)
[2018-01-11 10:16] VITALS: BP 178/80
[2018-01-11] MEDS: CARVEDILOL 12.5 MG TAB PO SCH (10:52)
[2018-01-11] MEDS: MULTIPLE VITAMIN TAB PO SCH (10:52)
[2018-01-11] MEDS: B-COMPLEX W/ C & FOLIC ACID(NEPHROVITE TAB) PO SCH (10:52)
[2018-01-11] MEDS: FLUoxetine HCL 20 MG CAP PO SCH (10:52)
[2018-01-11] MEDS: FOLIC ACID 1 MG TAB PO SCH (10:53)
[2018-01-11] MEDS: CHOLECALCIFEROL (VITD3) 1,000 UNIT TAB PO SCH (10:53)
[2018-01-11] MEDS: PANTOPRAZOLE 40 MG TAB PO SCH (10:53)
== END 2018-01-11 12:46 | disposition home or self-care (01) | DRG 241 ==
LOC: ER 15:04 → TELE 15:05 → TELE-CENTR 22:05
PROVIDERS: ADMIT Internal Medicine; ATTEND Internal Medicine
PROC: 5A1D70Z Performance of Urinary Filtration, Intermittent, Less than 6 Hours Per Day (ICD-10-PCS; 2018-01-08)
PROC: 0DB68ZX Excision of Stomach, Via Natural or Artificial Opening Endoscopic, Diagnostic (ICD-10-PCS; principal; 2018-01-09 09:18)
PROC: 5A1D70Z Performance of Urinary Filtration, Intermittent, Less than 6 Hours Per Day (ICD-10-PCS; 2018-01-10)
DX: K29.70 Gastritis, unspecified, without bleeding (principal); J90 Pleural effusion, not elsewhere classified; N18.6 End stage renal disease; E44.0 Moderate protein-calorie malnutrition; K31.84 Gastroparesis; E11.21 Type 2 diabetes mellitus with diabetic nephropathy; E11.43 Type 2 diabetes mellitus with diabetic autonomic (poly)neuropathy; E88.09 Other disorders of plasma-protein metabolism, not elsewhere classified; E87.5 Hyperkalemia; I13.11 Hypertensive heart and chronic kidney disease without heart failure, with stage 5 chronic kidney disease, or end stage renal disease; K52.9 Noninfective gastroenteritis and colitis, unspecified; E11.22 Type 2 diabetes mellitus with diabetic chronic kidney disease; D63.1 Anemia in chronic kidney disease; E11.319 Type 2 diabetes mellitus with unspecified diabetic retinopathy without macular edema; E86.0 Dehydration; E78.5 Hyperlipidemia, unspecified; F32.9 Major depressive disorder, single episode, unspecified; K57.30 Diverticulosis of large intestine without perforation or abscess without bleeding; R74.8 Abnormal levels of other serum enzymes; J98.11 Atelectasis; I25.10 Atherosclerotic heart disease of native coronary artery without angina pectoris; Z99.2 Dependence on renal dialysis; Z90.49 Acquired absence of other specified parts of digestive tract; Z79.899 Other long term (current) drug therapy; Z68.24 Body mass index [BMI] 24.0-24.9, adult
CPT/HCPCS: 36415; 43239; 71045; 74176; 74181; 80048; 80053; 80076; 81001; 82962; 83036; 83690; 84443; 84484; 85025; 85610; 85730; 87040; 87045; 87081; 87086; 87493; 87899; 90935; 93005; 93306; 96374; 96375; 97163; 99291; C9113; J0885; J1642; J1815; J2250; J2270; J2405; J3490

== ENCOUNTER 2018-02-13 12:43 | Inpatient (IN) | payer MEDICAID ==
[~2018-02-13] VITALS: Ht 157.5 cm; Wt 51.1 kg
[2018-02-13] MEDS ORDERED: LEVOFLOXACIN 500MG 100 ML IV ONE (13:00)
[2018-02-13 13:40] LABS: Basophils # (auto) 0.1 uL; Basophils % (auto) 1.2 % (0.0-2.0); Eosinophils # (auto) 0.2 uL; Eosinophils % (auto) 2.1 % (0.0-7.0); Hematocrit 37.1 % (36.0-46.0); Hemoglobin 11.9 g/dL (12.2-16.2); Lymphocytes # (auto) 1.6 uL; Mean Corpuscular Hemoglobin 30.1 pg (28.0-32.0); Mean Corpuscular Hgb Conc. 32.1 g/dL (32.0-36.0); Monocytes # (auto) 0.4 uL; Monocytes % (auto) 5.5 % (0.0-12.0); Neutrophils # (auto) 5.4 uL; Neutrophils % (auto) 70.2 % (37.0-80.0); Platelet Count (auto) 196 10^3/uL (140-450); Red Blood Cells 3.94 10^6/uL (4.0-5.20); White Blood Cell 7.7 10^3/uL (4.4-10.8)
[2018-02-13 14:01] LABS: Albumin 3.6 g/dL (3.4-5.0); BUN/Creatinine Ratio 4.7; Bilirubin, Total 0.8 mg/dL (0.2-1.0); Magnesium 2.8 mg/dL (1.6-2.6); Potassium 4.1 mmol/L (3.5-5.1); Total Protein 8.1 g/dL (6.4-8.2)
[2018-02-13] MEDS ORDERED: FUROSEMIDE 40 MG/4 ML VIAL IV ONE ×2 (14:30→15:45)
[2018-02-13] MEDS ORDERED: PROMETHAZINE HCL 25 MG/ML 1ML IV PRN (15:45)
[2018-02-13] MEDS ORDERED: ACETAMINOPHEN 500 MG TAB PO PRN (15:45)
[2018-02-13] MEDS ORDERED: TEMAZEPAM 15 MG CAP PO PRN (15:45)
[2018-02-13] MEDS ORDERED: LACTULOSE 20Gm/30ML SOLN PO PRN (15:45)
[2018-02-13] MEDS ORDERED: NITROGLYCERIN 0.4 MG SL TAB SL PRN (15:45)
[2018-02-13] MEDS ORDERED: LORazepam 0.5 MG TAB PO PRN (15:45)
[2018-02-13] MEDS ORDERED: DEXTROSE (50%) 50ML SYRG IV PRN (15:45)
[2018-02-13] MEDS ORDERED: MORPHINE SULFATE 4 MG/ML SYR/VIAL IV PRN (15:45)
[2018-02-13] MEDS ORDERED: CARVEDILOL 12.5 MG TAB PO ONE (16:30)
[2018-02-13] MEDS ORDERED: NIFEdipine ER 30 MG TAB PO ONE (16:30)
[2018-02-13] MEDS ORDERED: LOSARTAN POTASSIUM 50 MG TAB PO ONE (16:30)
[2018-02-13] MEDS ORDERED: LABETALOL HCL 5 MG/ML ML 20ML VIAL IV ONE (16:30)
[2018-02-13 16:31] LABS: CRP High Sensitivity 0.1 mg/dL (< 0.3)
[2018-02-13] MEDS: FAMOTIDINE 20 MG TAB PO SCH (16:50)
[2018-02-13] MEDS: CALCIUM ACETATE 667 MG CAP PO SCH (16:50)
[2018-02-13] MEDS: ACCU-CHEK COMFORT CURVE STRIP VI SCH ×2 (16:52→21:57)
[2018-02-13] MEDS: InsuLIN REG 1unit/0.01ml Soln (100units/ml) SC SCH ×2 (16:52→21:57)
[2018-02-13] MEDS: HYDROcodone-ACET 5/325MG TAB PO PRN (17:26)
[2018-02-13] MEDS ORDERED: FERROUS SULFATE 325 MG TAB PO SCH (18:00)
[2018-02-13] MEDS ORDERED: FUROSEMIDE 20 MG TAB PO SCH (18:00)
[2018-02-13 20:00] VITALS: BP 162/65
[2018-02-13] MEDS: MORPHINE SULFATE 4 MG/ML SYR/VIAL IV PRN (20:15)
[2018-02-13] MEDS: PANTOPRAZOLE 40 MG TAB PO SCH (21:55)
[2018-02-13] MEDS: FERROUS SULFATE 325 MG TAB PO SCH (21:56)
[2018-02-13] MEDS: CARVEDILOL 12.5 MG TAB PO SCH (21:57)
[2018-02-13] MEDS ORDERED: ATORVASTATIN 20 MG TAB PO SCH (22:00)
[2018-02-13] MEDS ORDERED: NIFEdipine ER 30 MG TAB PO SCH (22:00)
[2018-02-13 22:53] VITALS: BP 129/62
[2018-02-14] MEDS ORDERED: ATOR1TAB PO (00:42)
[2018-02-14] MEDS ORDERED: CHOL100040 PO (00:42)
[2018-02-14] MEDS ORDERED: FLUO40CA PO (00:53)
[2018-02-14] MEDS ORDERED: LOSA50TA6 PO (00:53)
[2018-02-14] MEDS ORDERED: B-CO-6 PO (00:53)
[2018-02-14] MEDS: HYDROcodone-ACET 5/325MG TAB PO PRN ×2 (02:25→14:35)
[2018-02-14] MEDS: MORPHINE SULFATE 4 MG/ML SYR/VIAL IV PRN (05:40)
[2018-02-14] MEDS: FUROSEMIDE 40 MG/4 ML VIAL IV SCH ×2 (05:40→17:57)
[2018-02-14 05:44] VITALS: BP 122/58
[2018-02-14 05:49] LABS: Basophils # (auto) 0.1 uL; Basophils % (auto) 1.2 % (0.0-2.0); Eosinophils # (auto) 0.2 uL; Eosinophils % (auto) 3.7 % (0.0-7.0); Hematocrit 36.3 % (36.0-46.0); Hemoglobin 11.8 g/dL (12.2-16.2); Lymphocytes # (auto) 1.9 uL; Lymphocytes % (auto) 31.5 % (10.0-50.0); Mean Corpuscular Hemoglobin 30.7 pg (28.0-32.0); Mean Corpuscular Hgb Conc. 32.6 g/dL (32.0-36.0); Mean Corpuscular Volume 93.9 fL (80.0-100.0); Monocytes # (auto) 0.4 uL; Monocytes % (auto) 6.8 % (0.0-12.0); Neutrophils # (auto) 3.4 uL; Neutrophils % (auto) 56.8 % (37.0-80.0); Platelet Count (auto) 200 10^3/uL (140-450); Red Blood Cells 3.86 10^6/uL (4.0-5.20); Red Cell Distribution Width 16.3 % (11.8-14.3)
[2018-02-14 06:00] VITALS: BP 123/59
[2018-02-14 06:17] LABS: Albumin 3.1 g/dL (3.4-5.0); Calcium 9.9 mg/dL (8.5-10.1); Potassium 4.3 mmol/L (3.5-5.1)
[2018-02-14 06:20] LABS: BUN/Creatinine Ratio 5.4
[2018-02-14 06:22] LABS: Bilirubin, Total 0.6 mg/dL (0.2-1.0); Total Protein 7.2 g/dL (6.4-8.2)
[2018-02-14] MEDS: InsuLIN REG 1unit/0.01ml Soln (100units/ml) SC SCH ×3 (06:53→17:00)
[2018-02-14] MEDS: ACCU-CHEK COMFORT CURVE STRIP VI SCH ×3 (06:53→17:57)
[2018-02-14] MEDS ORDERED: INSULIN NPH Isophane (HUMAN) 1unit/0.01ml Susp(100units/ml) SC SCH (07:00)
[2018-02-14] MEDS: CALCIUM ACETATE 667 MG CAP PO SCH ×3 (07:45→17:55)
[2018-02-14 09:00] VITALS: BP 123/59
[2018-02-14] MEDS: FERROUS SULFATE 325 MG TAB PO SCH (09:29)
[2018-02-14] MEDS: FAMOTIDINE 20 MG TAB PO SCH (09:30)
[2018-02-14] MEDS: PANTOPRAZOLE 40 MG TAB PO SCH (09:30)
[2018-02-14] MEDS: CARVEDILOL 12.5 MG TAB PO SCH (09:31)
[2018-02-14] MEDS ORDERED: B-COMPLEX W/ C & FOLIC ACID(NEPHROVITE TAB) PO SCH (10:00)
[2018-02-14] MEDS ORDERED: CHOLECALCIFEROL (VITD3) 1,000 UNIT TAB PO SCH (10:00)
[2018-02-14] MEDS ORDERED: NITROGLYCERIN 0.2MG/HR TOPICAL PATCH TD SCH (10:00)
[2018-02-14] MEDS ORDERED: FOLIC ACID 1 MG TAB PO SCH (10:00)
[2018-02-14] MEDS ORDERED: FLUoxetine HCL 20 MG CAP PO SCH (10:00)
[2018-02-14] MEDS ORDERED: ENOXAPARIN SOD 30 MG/0.3 ML SYRINGE SC SCH (10:00)
[2018-02-14 10:07] LABS: Alcohol, Urine < 3.0 mg/dL (0-5); Amphetamine Screen, Urine NEGATIVE (NEGATIVE); Barbiturate Scree,Urine NEGATIVE (NEGATIVE); Benzodiazephine Screen, Urine NEGATIVE (NEGATIVE); Cannabinoid Screen, Urine NEGATIVE (NEGATIVE); Cocaine Screen, Urine NEGATIVE (NEGATIVE); Opiate Scree,Urine POSITIVE (NEGATIVE); Phencyclidine Screen, Urine NEGATIVE (NEGATIVE)
[2018-02-14 13:00] VITALS: BP 147/69
[2018-02-14 16:15] VITALS: BP 127/66
[2018-02-14 16:25] VITALS: BP 147/80
[2018-02-14] MEDS ORDERED: MORPHINE SULFATE 8mg/ml INJ SDV IV PRN ×2 (17:45)
== END 2018-02-14 18:40 | disposition home or self-care (01) | DRG 194 ==
LOC: ER 12:49 → TELE 12:50 → TELE-WESTW 20:32
PROVIDERS: ADMIT Internal Medicine; ATTEND Internal Medicine
PROC: 5A1D70Z Performance of Urinary Filtration, Intermittent, Less than 6 Hours Per Day (ICD-10-PCS; principal; 2018-02-14)
DX: I13.2 Hypertensive heart and chronic kidney disease with heart failure and with stage 5 chronic kidney disease, or end stage renal disease (principal); N18.6 End stage renal disease; E11.22 Type 2 diabetes mellitus with diabetic chronic kidney disease; D63.8 Anemia in other chronic diseases classified elsewhere; E78.5 Hyperlipidemia, unspecified; I25.10 Atherosclerotic heart disease of native coronary artery without angina pectoris; F32.9 Major depressive disorder, single episode, unspecified; R74.8 Abnormal levels of other serum enzymes; R79.89 Other specified abnormal findings of blood chemistry; K59.00 Constipation, unspecified; F41.9 Anxiety disorder, unspecified; I50.9 Heart failure, unspecified; Z99.2 Dependence on renal dialysis; Z82.49 Family history of ischemic heart disease and other diseases of the circulatory system; Z82.5 Family history of asthma and other chronic lower respiratory diseases; Z83.3 Family history of diabetes mellitus; Z90.49 Acquired absence of other specified parts of digestive tract; Z87.01 Personal history of pneumonia (recurrent); Z79.899 Other long term (current) drug therapy
CPT/HCPCS: 36415; 71045; 80053; 80061; 80307; 82150; 82550; 82962; 83036; 83605; 83690; 83735; 83880; 84443; 84484; 85025; 85652; 86141; 87040; 87081; 90935; 93005; 96365; 96375; J1956

== ENCOUNTER 2018-03-01 11:04 | Inpatient (IN) | payer MEDICAID ==
[~2018-03-01] VITALS: Ht 127 cm; Wt 56.6 kg
[~2018-03-01 11:04] MED LIST changes: +ATOR1TAB PO; -ATOR20TA50 PO; +CHOL100040 PO; -CHOL20007 PO; -FLUO-125 PO; +FLUO40CA PO; +LOSA50TA6 PO
[2018-03-01] MEDS ORDERED: cloNIDine HCL 0.1 MG TAB PO ONE (11:45)
[2018-03-01 11:56] LABS: Basophils # (auto) 0.1 uL; Basophils % (auto) 1.1 % (0.0-2.0); Eosinophils # (auto) 0.1 uL; Eosinophils % (auto) 1.9 % (0.0-7.0); Hematocrit 35.4 % (36.0-46.0); Hemoglobin 11.5 g/dL (12.2-16.2); Lymphocytes # (auto) 1.6 uL; Lymphocytes % (auto) 22.7 % (10.0-50.0); Mean Corpuscular Hemoglobin 30.2 pg (28.0-32.0); Mean Corpuscular Hgb Conc. 32.6 g/dL (32.0-36.0); Mean Corpuscular Volume 92.5 fL (80.0-100.0); Monocytes # (auto) 0.4 uL; Monocytes % (auto) 5.4 % (0.0-12.0); Neutrophils # (auto) 4.9 uL; Neutrophils % (auto) 68.9 % (37.0-80.0); Platelet Count (auto) 201 10^3/uL (140-450); Red Blood Cells 3.83 10^6/uL (4.0-5.20); Red Cell Distribution Width 15.5 % (11.8-14.3); White Blood Cell 7.2 10^3/uL (4.4-10.8)
[2018-03-01 12:14] LABS: Albumin 3.5 g/dL (3.4-5.0); BUN/Creatinine Ratio 4.7; Bilirubin, Total 0.8 mg/dL (0.2-1.0); Calcium 10.3 mg/dL (8.5-10.1); Magnesium 2.6 mg/dL (1.6-2.6); Potassium 4.7 mmol/L (3.5-5.1); Total Protein 7.7 g/dL (6.4-8.2)
[2018-03-01] MEDS ORDERED: AZITHROMYCIN 500MG/ 250ML 250 ML IV ONE (12:15)
[2018-03-01] MEDS ORDERED: LABETALOL HCL 5 MG/ML ML 20ML VIAL IV ONE (12:15)
[2018-03-01] MEDS ORDERED: cefTRIAXone 1GM/10ml IVPUSH 10 ML IV ONE (12:15)
[2018-03-01] MEDS: NICARDIPINE 25MG/250ML BAG KIT 250 ML IV SCH ×2 (13:14→19:00)
[2018-03-01] MEDS ORDERED: FUROSEMIDE 40 MG/4 ML VIAL IV ONE (18:45)
[2018-03-01] MEDS ORDERED: NITROGLYCERIN 0.4 MG SL TAB SL PRN ×2 (18:45→19:15)
[2018-03-01] MEDS ORDERED: MORPHINE SULFATE 8mg/ml INJ SDV IV PRN ×3 (18:45→19:15)
[2018-03-01 18:59] VITALS: BP 127/66
[2018-03-01] MEDS ORDERED: DEXTROSE (50%) 50ML SYRG IV PRN (19:00)
[2018-03-01] MEDS ORDERED: ONDANSETRON HCL 4 MG/2 ML VIAL IV PRN (19:15)
[2018-03-01] MEDS ORDERED: TEMAZEPAM 15 MG CAP PO PRN (19:15)
[2018-03-01] MEDS ORDERED: DOCUSATE SOD 100 MG CAP PO PRN (19:15)
[2018-03-01] MEDS ORDERED: ACETAMINOPHEN 325 MG TAB PO PRN (19:15)
[2018-03-01] MEDS: INSULIN NPH Isophane (HUMAN) 1unit/0.01ml Susp(100units/ml) SC SCH (19:50)
[2018-03-01 21:00] VITALS: BP 151/75
[2018-03-01 22:00] VITALS: BP 162/79
[2018-03-01] MEDS: InsuLIN REG 1unit/0.01ml Soln (100units/ml) SC SCH (22:00)
[2018-03-01] MEDS ORDERED: FAMOTIDINE 20 MG TAB PO SCH (22:00)
[2018-03-01] MEDS: ATORVASTATIN 20 MG TAB PO SCH (22:17)
[2018-03-01] MEDS: HYDROcodone-ACET 5/325MG TAB PO PRN (22:17)
[2018-03-01] MEDS: PANTOPRAZOLE 40 MG TAB PO SCH (22:17)
[2018-03-01] MEDS: CARVEDILOL 12.5 MG TAB PO SCH (22:18)
[2018-03-01] MEDS: ACCU-CHEK COMFORT CURVE STRIP VI SCH (22:19)
[2018-03-01] MEDS: SODIUM CHLOR 0.9% PF (SALINE LOCK) 10ML VIAL/SYR IV SCH (22:27)
[2018-03-01] MEDS: cloNIDine HCL 0.1 MG TAB PO PRN (23:58)
[2018-03-02] MEDS: ALBUTEROL SULF 2.5 MG/0.5ML(0.5%) NEB SOLN NEB SCH ×5 (00:26→19:19)
[2018-03-02] MEDS: IPRATROPIUM BROM 0.5 MG/2.5ML INH SOL NEB SCH ×5 (00:26→19:19)
[2018-03-02] MEDS: LABETALOL HCL 5 MG/ML ML 20ML VIAL IV PRN ×2 (01:25→15:47)
[2018-03-02] MEDS: cloNIDine HCL 0.1 MG TAB PO PRN ×4 (02:50→23:54)
[2018-03-02 04:43] VITALS: BP 202/93
[2018-03-02] MEDS: HYDROcodone-ACET 5/325MG TAB PO PRN ×3 (04:52→15:31)
[2018-03-02] MEDS ORDERED: hydrALAZINE HCL 20 MG/ML VL IV ONE (05:15)
[2018-03-02 05:52] LABS: Basophils # (auto) 0.1 uL; Basophils % (auto) 1.9 % (0.0-2.0); Eosinophils # (auto) 0.3 uL; Eosinophils % (auto) 5.1 % (0.0-7.0); Hematocrit 32.2 % (36.0-46.0); Hemoglobin 10.8 g/dL (12.2-16.2); Lymphocytes # (auto) 2.2 uL; Lymphocytes % (auto) 40.7 % (10.0-50.0); Mean Corpuscular Hemoglobin 30.9 pg (28.0-32.0); Mean Corpuscular Hgb Conc. 33.6 g/dL (32.0-36.0); Monocytes # (auto) 0.4 uL; Monocytes % (auto) 7.5 % (0.0-12.0); Neutrophils # (auto) 2.4 uL; Neutrophils % (auto) 44.8 % (37.0-80.0); Platelet Count (auto) 200 10^3/uL (140-450); Red Cell Distribution Width 16.4 % (11.8-14.3); White Blood Cell 5.3 10^3/uL (4.4-10.8)
[2018-03-02] MEDS ORDERED: FUROSEMIDE 20 MG TAB PO SCH (06:00)
[2018-03-02 06:09] LABS: BUN/Creatinine Ratio 4.7; Bilirubin, Total 0.6 mg/dL (0.2-1.0); Calcium 9.5 mg/dL (8.5-10.1); Potassium 4.1 mmol/L (3.5-5.1); Total Protein 6.8 g/dL (6.4-8.2)
[2018-03-02 06:28] VITALS: BP 157/80
[2018-03-02] MEDS: SODIUM CHLOR 0.9% PF (SALINE LOCK) 10ML VIAL/SYR IV SCH ×3 (06:33→22:14)
[2018-03-02] MEDS: InsuLIN REG 1unit/0.01ml Soln (100units/ml) SC SCH ×4 (06:45→22:00)
[2018-03-02] MEDS: INSULIN NPH Isophane (HUMAN) 1unit/0.01ml Susp(100units/ml) SC SCH ×2 (06:46→17:43)
[2018-03-02] MEDS: ACCU-CHEK COMFORT CURVE STRIP VI SCH ×4 (06:46→22:00)
[2018-03-02] MEDS: CALCIUM ACETATE 667 MG CAP PO SCH ×3 (07:43→17:44)
[2018-03-02] MEDS: FERROUS SULFATE 325 MG TAB PO SCH ×2 (07:43→17:44)
[2018-03-02 07:44] VITALS: BP 151/67
[2018-03-02] MEDS ORDERED: cefTRIAXone 1GM/10ml IVPUSH 10 ML IV SCH (09:00)
[2018-03-02] MEDS ORDERED: FOLIC ACID 1 MG TAB PO SCH (10:00)
[2018-03-02] MEDS ORDERED: CHOLECALCIFEROL (VITD3) 1,000 UNIT TAB PO SCH (10:00)
[2018-03-02] MEDS ORDERED: AZITHROMYCIN 500MG/ 250ML 250 ML IV SCH (10:00)
[2018-03-02] MEDS ORDERED: FUROSEMIDE 40 MG/4 ML VIAL IV SCH ×2 (10:00)
[2018-03-02] MEDS ORDERED: B-COMPLEX W/ C & FOLIC ACID(NEPHROVITE TAB) PO SCH (10:00)
[2018-03-02] MEDS ORDERED: LOSARTAN POTASSIUM 50 MG TAB PO SCH ×2 (10:00→22:00)
[2018-03-02] MEDS ORDERED: FLUoxetine HCL 20 MG CAP PO SCH (10:00)
[2018-03-02] MEDS ORDERED: POTASSIUM CHL 20 Meq TABLET PO SCH (10:00)
[2018-03-02] MEDS: CARVEDILOL 12.5 MG TAB PO SCH ×2 (10:29→22:14)
[2018-03-02] MEDS: PANTOPRAZOLE 40 MG TAB PO SCH ×2 (10:29→22:12)
[2018-03-02 13:26] VITALS: BP 190/88
[2018-03-02 16:22] VITALS: BP 209/103
[2018-03-02] MEDS ORDERED: LABETALOL HCL 5 MG/ML ML 20ML VIAL IV PRN (19:00)
[2018-03-02 22:00] VITALS: BP 211/96
[2018-03-02] MEDS ORDERED: NIFEdipine ER 30 MG TAB PO SCH (22:00)
[2018-03-02] MEDS: ATORVASTATIN 20 MG TAB PO SCH (22:19)
[2018-03-03] MEDS: IPRATROPIUM BROM 0.5 MG/2.5ML INH SOL NEB SCH ×3 (00:51→11:25)
[2018-03-03] MEDS: ALBUTEROL SULF 2.5 MG/0.5ML(0.5%) NEB SOLN NEB SCH ×3 (00:51→11:25)
[2018-03-03 01:39] VITALS: BP 214/93
[2018-03-03] MEDS ORDERED: hydrALAZINE HCL 20 MG/ML VL IV ONE (03:00)
[2018-03-03 04:05] VITALS: BP 158/74
[2018-03-03 04:51] VITALS: BP 158/74
[2018-03-03 05:50] LABS: Basophils # (auto) 0.1 uL; Basophils % (auto) 0.9 % (0.0-2.0); Eosinophils # (auto) 0.3 uL; Eosinophils % (auto) 4.1 % (0.0-7.0); Hematocrit 32.3 % (36.0-46.0); Hemoglobin 10.5 g/dL (12.2-16.2); Lymphocytes % (auto) 31.7 % (10.0-50.0); Mean Corpuscular Hemoglobin 30.4 pg (28.0-32.0); Mean Corpuscular Hgb Conc. 32.5 g/dL (32.0-36.0); Mean Corpuscular Volume 93.6 fL (80.0-100.0); Monocytes # (auto) 0.4 uL; Monocytes % (auto) 6.7 % (0.0-12.0); Neutrophils # (auto) 3.6 uL; Neutrophils % (auto) 56.6 % (37.0-80.0); Platelet Count (auto) 185 10^3/uL (140-450); Red Blood Cells 3.45 10^6/uL (4.0-5.20); Red Cell Distribution Width 16.2 % (11.8-14.3); White Blood Cell 6.3 10^3/uL (4.4-10.8)
[2018-03-03] MEDS: SODIUM CHLOR 0.9% PF (SALINE LOCK) 10ML VIAL/SYR IV SCH ×2 (06:00→14:00)
[2018-03-03 06:29] LABS: BUN/Creatinine Ratio 4.9; Calcium 9.3 mg/dL (8.5-10.1); Potassium 4.9 mmol/L (3.5-5.1)
[2018-03-03] MEDS: InsuLIN REG 1unit/0.01ml Soln (100units/ml) SC SCH ×2 (06:45→11:30)
[2018-03-03] MEDS: ACCU-CHEK COMFORT CURVE STRIP VI SCH ×2 (06:45→11:30)
[2018-03-03] MEDS: INSULIN NPH Isophane (HUMAN) 1unit/0.01ml Susp(100units/ml) SC SCH (06:45)
[2018-03-03] MEDS: FERROUS SULFATE 325 MG TAB PO SCH (08:43)
[2018-03-03] MEDS: CALCIUM ACETATE 667 MG CAP PO SCH ×2 (08:43→12:00)
[2018-03-03 09:00] VITALS: BP 127/64
[2018-03-03] MEDS: HYDROcodone-ACET 5/325MG TAB PO PRN (11:01)
[2018-03-03] MEDS ORDERED: EPOETIN ALFA 2,000 UNIT/1 ML VIAL IV ONE (12:00)
[2018-03-03] MEDS ORDERED: EPOETIN ALFA 3,000 UNIT/1 ML VIAL IV ONE (12:00)
[2018-03-03] MEDS ORDERED: SODIUM CHL 0.9% 1000 ML BAG XX ONE (12:00)
[2018-03-03 13:00] VITALS: BP 114/62
[2018-03-03 16:45] VITALS: BP 128/59
== END 2018-03-03 17:09 | disposition home or self-care (01) | DRG 139 ==
LOC: ER 11:04 → TELE 11:05 → WEST WING 19:49 → TELE-WESTW 20:56
PROVIDERS: ADMIT Internal Medicine; ATTEND Internal Medicine
PROC: 5A1D70Z Performance of Urinary Filtration, Intermittent, Less than 6 Hours Per Day (ICD-10-PCS; principal; 2018-03-03)
DX: J18.9 Pneumonia, unspecified organism (principal); J96.00 Acute respiratory failure, unspecified whether with hypoxia or hypercapnia; I50.33 Acute on chronic diastolic (congestive) heart failure; N25.81 Secondary hyperparathyroidism of renal origin; N18.6 End stage renal disease; E11.21 Type 2 diabetes mellitus with diabetic nephropathy; J45.901 Unspecified asthma with (acute) exacerbation; E83.52 Hypercalcemia; I13.2 Hypertensive heart and chronic kidney disease with heart failure and with stage 5 chronic kidney disease, or end stage renal disease; E11.22 Type 2 diabetes mellitus with diabetic chronic kidney disease; D63.8 Anemia in other chronic diseases classified elsewhere; E78.5 Hyperlipidemia, unspecified; F32.9 Major depressive disorder, single episode, unspecified; I25.10 Atherosclerotic heart disease of native coronary artery without angina pectoris; Z99.2 Dependence on renal dialysis; Z83.3 Family history of diabetes mellitus; Z90.49 Acquired absence of other specified parts of digestive tract
CPT/HCPCS: 36415; 71046; 80048; 80053; 82962; 83036; 83735; 83880; 84443; 84484; 85025; 87040; 87081; 90935; 93005; 94640; 96374; 96375; 97163; J1642; J1815; Q4081

== ENCOUNTER 2018-07-26 20:26 | Inpatient (IN) | payer MEDICAID ==
[~2018-07-26] VITALS: Ht 157.5 cm; Wt 50.8 kg
[~2018-07-26 20:26] MED LIST changes: -FER325T PO; -FERR-20 PO; -INSUINJ48 SC; +LOSA-46 PO; -LOSA50TA6 PO; -PANT40T PO
[2018-07-26 22:24] LABS: Albumin 3.6 g/dL (3.4-5.0); BUN/Creatinine Ratio 5.5; Calcium 9.1 mg/dL (8.5-10.1); Magnesium 2.6 mg/dL (1.6-2.6); Potassium 4.3 mmol/L (3.5-5.1)
[2018-07-26 22:29] LABS: Bilirubin, Total 0.7 mg/dL (0.2-1.0); Total Protein 7.6 g/dL (6.4-8.2)
[2018-07-26] MEDS ORDERED: cloNIDine HCL 0.1 MG TAB PO ONE (22:30)
[2018-07-26] MEDS ORDERED: ENALAPRILAT 1.25 MG/ML-1ML VIAL IV ONE (22:30)
[2018-07-26] MEDS ORDERED: NIFEdipine 10 MG CAP PO ONE (22:30)
[2018-07-27] MEDS ORDERED: ONDANSETRON HCL 4 MG/2 ML VIAL IV PRN (03:15)
[2018-07-27] MEDS ORDERED: ACETAMINOPHEN 500 MG TAB PO PRN (03:15)
[2018-07-27] MEDS ORDERED: DEXTROSE (50%) 50ML SYRG IV PRN (03:30)
[2018-07-27 05:42] VITALS: BP 143/66
[2018-07-27] MEDS: ACCU-CHEK COMFORT CURVE STRIP VI SCH ×5 (06:38→21:19)
[2018-07-27] MEDS: InsuLIN REG 1unit/0.01ml Soln (100units/ml) SC SCH ×5 (06:38→21:19)
[2018-07-27] MEDS: HYDROcodone-ACET 5/325MG TAB PO PRN ×2 (06:50→17:19)
[2018-07-27 07:56] LABS: Basophils # (auto) 0.1 uL; Basophils % (auto) 1.3 % (0.0-2.0); Eosinophils # (auto) 0.3 uL; Eosinophils % (auto) 5.2 % (0.0-7.0); Hematocrit 34.8 % (36.0-46.0); Hemoglobin 11.3 g/dL (12.2-16.2); Lymphocytes # (auto) 1.3 uL; Lymphocytes % (auto) 20.1 % (10.0-50.0); Mean Corpuscular Hemoglobin 30.4 pg (28.0-32.0); Mean Corpuscular Hgb Conc. 32.5 g/dL (32.0-36.0); Mean Corpuscular Volume 93.4 fL (80.0-100.0); Monocytes # (auto) 0.5 uL; Monocytes % (auto) 7.7 % (0.0-12.0); Neutrophils # (auto) 4.3 uL; Neutrophils % (auto) 65.7 % (37.0-80.0); Nucleated Red Blood Cells % 0.1 %; Platelet Count (auto) 216 10^3/uL (140-450); Red Blood Cells 3.73 10^6/uL (4.0-5.20); Red Cell Distribution Width 17.7 % (11.8-14.3); White Blood Cell 6.6 10^3/uL (4.4-10.8)
[2018-07-27] MEDS ORDERED: cloNIDine HCL 0.1 MG TAB PO SCH (08:00)
[2018-07-27 08:11] LABS: BUN/Creatinine Ratio 5.4; Calcium 9.5 mg/dL (8.5-10.1); Potassium 4.5 mmol/L (3.5-5.1)
[2018-07-27] MEDS: CALCIUM ACETATE 667 MG CAP PO SCH ×3 (08:36→17:19)
[2018-07-27] MEDS: FLUoxetine HCL 20 MG CAP PO SCH (08:37)
[2018-07-27] MEDS: B-COMPLEX W/ C & FOLIC ACID(NEPHROVITE TAB) PO SCH (08:37)
[2018-07-27] MEDS: NIFEdipine ER 30 MG TAB PO SCH (08:38)
[2018-07-27] MEDS: LOSARTAN POTASSIUM 50 MG TAB PO SCH (08:39)
[2018-07-27 09:00] VITALS: BP 147/96
[2018-07-27] MEDS ORDERED: FUROSEMIDE 20 MG TAB PO SCH (10:00)
[2018-07-27 13:00] VITALS: BP 138/69
[2018-07-27 17:00] VITALS: BP 149/69
[2018-07-27] MEDS: FUROSEMIDE 40 MG TAB PO SCH (17:20)
[2018-07-27 22:00] VITALS: BP 149/70
[2018-07-28 05:00] VITALS: BP 183/86
[2018-07-28] MEDS: FUROSEMIDE 40 MG TAB PO SCH ×2 (06:02→17:51)
[2018-07-28 06:30] LABS: Basophils # (auto) 0.1 uL; Basophils % (auto) 1.2 % (0.0-2.0); Eosinophils # (auto) 0.4 uL; Eosinophils % (auto) 5.4 % (0.0-7.0); Hematocrit 34.5 % (36.0-46.0); Hemoglobin 11.4 g/dL (12.2-16.2); Lymphocytes # (auto) 1.4 uL; Mean Corpuscular Hgb Conc. 33.1 g/dL (32.0-36.0); Mean Corpuscular Volume 93.5 fL (80.0-100.0); Monocytes # (auto) 0.5 uL; Monocytes % (auto) 6.8 % (0.0-12.0); Neutrophils # (auto) 5.1 uL; Neutrophils % (auto) 67.6 % (37.0-80.0); Nucleated Red Blood Cells % 0.1 %; Platelet Count (auto) 204 10^3/uL (140-450); Red Blood Cells 3.68 10^6/uL (4.0-5.20); Red Cell Distribution Width 17.4 % (11.8-14.3); White Blood Cell 7.6 10^3/uL (4.4-10.8)
[2018-07-28] MEDS: InsuLIN REG 1unit/0.01ml Soln (100units/ml) SC SCH ×3 (06:30→17:50)
[2018-07-28] MEDS: ACCU-CHEK COMFORT CURVE STRIP VI SCH ×3 (06:30→16:45)
[2018-07-28 06:35] LABS: BUN/Creatinine Ratio 5.3; Calcium 9.9 mg/dL (8.5-10.1); Potassium 4.8 mmol/L (3.5-5.1)
[2018-07-28] MEDS: HYDROcodone-ACET 5/325MG TAB PO PRN ×3 (07:03→16:08)
[2018-07-28] MEDS: CALCIUM ACETATE 667 MG CAP PO SCH ×3 (08:01→17:51)
[2018-07-28 08:02] VITALS: BP 188/80
[2018-07-28] MEDS: B-COMPLEX W/ C & FOLIC ACID(NEPHROVITE TAB) PO SCH (11:46)
[2018-07-28] MEDS: FLUoxetine HCL 20 MG CAP PO SCH (11:46)
[2018-07-28] MEDS: LOSARTAN POTASSIUM 50 MG TAB PO SCH (11:47)
[2018-07-28] MEDS: NIFEdipine ER 30 MG TAB PO SCH (11:47)
[2018-07-28 13:00] VITALS: BP 198/88
[2018-07-28 13:26] VITALS: BP 200/100
[2018-07-28 16:21] VITALS: BP 165/80
[2018-07-28 17:08] VITALS: BP 165/80
== END 2018-07-28 18:35 | disposition home or self-care (01) | DRG 133 ==
LOC: ER 20:26 → TELE 20:27 → TELE-WESTW 07-27 04:10
PROVIDERS: ADMIT Nurse Practitioner Family; ATTEND Internal Medicine
PROC: 5A1D70Z Performance of Urinary Filtration, Intermittent, Less than 6 Hours Per Day (ICD-10-PCS; principal; 2018-07-28)
DX: J96.00 Acute respiratory failure, unspecified whether with hypoxia or hypercapnia (principal); I13.2 Hypertensive heart and chronic kidney disease with heart failure and with stage 5 chronic kidney disease, or end stage renal disease; N18.6 End stage renal disease; E11.22 Type 2 diabetes mellitus with diabetic chronic kidney disease; I50.33 Acute on chronic diastolic (congestive) heart failure; E78.5 Hyperlipidemia, unspecified; I25.10 Atherosclerotic heart disease of native coronary artery without angina pectoris; F41.9 Anxiety disorder, unspecified; D63.8 Anemia in other chronic diseases classified elsewhere; F32.9 Major depressive disorder, single episode, unspecified; Z82.49 Family history of ischemic heart disease and other diseases of the circulatory system; Z82.5 Family history of asthma and other chronic lower respiratory diseases; Z83.3 Family history of diabetes mellitus; Z99.2 Dependence on renal dialysis
CPT/HCPCS: 36415; 36600; 71045; 80048; 80053; 82805; 82962; 83735; 83880; 84484; 85025; 87081; 90935; 93005; 96374; 99291; G0378; J1815

== ENCOUNTER 2018-08-31 12:33 | Inpatient (IN) | payer MEDICAID ==
[~2018-08-31] VITALS: Ht 157.5 cm; Wt 51.0 kg
[2018-08-31] MEDS ORDERED: ONDANSETRON HCL 4 MG/2 ML VIAL IV ONE (13:30)
[2018-08-31] MEDS ORDERED: MORPHINE SULFATE 4 MG/ML SYR/VIAL IV ONE (13:30)
[2018-08-31] MEDS ORDERED: ASPirin 81 mg TAB PO ONE (13:30)
[2018-08-31 13:43] LABS: Basophils # (auto) 0.1 uL; Basophils % (auto) 0.9 % (0.0-2.0); Eosinophils # (auto) 0.3 uL; Eosinophils % (auto) 3.8 % (0.0-7.0); Hematocrit 30.1 % (36.0-46.0); Hemoglobin 9.9 g/dL (12.2-16.2); Lymphocytes # (auto) 1.1 uL; Lymphocytes % (auto) 15.6 % (10.0-50.0); Mean Corpuscular Hemoglobin 30.5 pg (28.0-32.0); Mean Corpuscular Hgb Conc. 32.9 g/dL (32.0-36.0); Mean Corpuscular Volume 92.8 fL (80.0-100.0); Monocytes # (auto) 0.5 uL; Monocytes % (auto) 7.3 % (0.0-12.0); Neutrophils # (auto) 5.1 uL; Neutrophils % (auto) 72.4 % (37.0-80.0); Platelet Count (auto) 200 10^3/uL (140-450); Red Blood Cells 3.25 10^6/uL (4.0-5.20); Red Cell Distribution Width 15.8 % (11.8-14.3); White Blood Cell 7.1 10^3/uL (4.4-10.8)
[2018-08-31 14:06] LABS: Albumin 3.4 g/dL (3.4-5.0); BUN/Creatinine Ratio 6.4; Calcium 9.2 mg/dL (8.5-10.1); Potassium 5.3 mmol/L (3.5-5.1)
[2018-08-31 14:12] LABS: Bilirubin, Total 0.5 mg/dL (0.2-1.0); Total Protein 7.6 g/dL (6.4-8.2)
[2018-08-31] MEDS ORDERED: FURO20TA PO (14:20)
[2018-08-31] MEDS ORDERED: CLON0.2T PO (14:20)
[2018-08-31] MEDS ORDERED: LOSA-49 PO (14:20)
[2018-08-31] MEDS ORDERED: DEXTROSE (50%) 50ML SYRG IV PRN (17:00)
[2018-08-31] MEDS ORDERED: ACETAMINOPHEN 325 MG TAB PO PRN (17:15)
[2018-08-31] MEDS ORDERED: MORPHINE SULFATE 4 MG/ML SYR/VIAL IV PRN (17:15)
[2018-08-31] MEDS ORDERED: ALUM & MAG HYDROX-SIMETH LIQ(MAALOX) 30 ML PO ONE (17:15)
[2018-08-31] MEDS ORDERED: ZOLPIDEM TARTRATE 5 MG TAB PO PRN (17:15)
[2018-08-31] MEDS ORDERED: LORazepam 0.5 MG TAB PO PRN (17:15)
[2018-08-31] MEDS ORDERED: cloNIDine HCL 0.1 MG TAB PO PRN (17:15)
[2018-08-31] MEDS ORDERED: NITROGLYCERIN 0.4 MG SL TAB SL PRN ×2 (17:15)
[2018-08-31] MEDS: InsuLIN REG 1unit/0.01ml Soln (100units/ml) SC SCH ×2 (17:57→21:55)
[2018-08-31] MEDS: ACCU-CHEK COMFORT CURVE STRIP VI SCH ×2 (17:57→21:54)
[2018-08-31] MEDS: CALCIUM ACETATE 667 MG CAP PO SCH (17:58)
[2018-08-31] MEDS: FUROSEMIDE 20 MG TAB PO SCH (17:58)
[2018-08-31] MEDS: MORPHINE SULFATE 10 MG/ML INJ 1ML SDV IV PRN (18:46)
[2018-08-31 18:57] VITALS: BP 152/73
[2018-08-31 19:09] LABS: INR 1.03 (0.9-1.15)
[2018-08-31 20:00] VITALS: BP 147/74
[2018-08-31] MEDS: CARVEDILOL 12.5 MG TAB PO SCH (21:54)
[2018-08-31] MEDS: cloNIDine HCL 0.1 MG TAB PO SCH (21:54)
[2018-08-31] MEDS: SODIUM CHLOR 0.9% PF (SALINE LOCK) 10ML VIAL/SYR IV SCH (21:55)
[2018-09-01] VITALS (7 sets, daily range): BP systolic 140–196; BP diastolic 66–86
[2018-09-01 00:56] LABS: Basophils # (auto) 0 uL; Basophils % (auto) 0.6 % (0.0-2.0); Eosinophils # (auto) 0.3 uL; Eosinophils % (auto) 3.8 % (0.0-7.0); Hemoglobin 9.5 g/dL (12.2-16.2); Lymphocytes # (auto) 1.2 uL; Lymphocytes % (auto) 15.4 % (10.0-50.0); Mean Corpuscular Hemoglobin 30.7 pg (28.0-32.0); Mean Corpuscular Hgb Conc. 32.7 g/dL (32.0-36.0); Monocytes # (auto) 0.6 uL; Monocytes % (auto) 7.9 % (0.0-12.0); Neutrophils # (auto) 5.4 uL; Neutrophils % (auto) 72.3 % (37.0-80.0); Platelet Count (auto) 173 10^3/uL (140-450); Red Blood Cells 3.09 10^6/uL (4.0-5.20); White Blood Cell 7.5 10^3/uL (4.4-10.8)
[2018-09-01 01:06] LABS: Albumin 3.2 g/dL (3.4-5.0); Calcium 8.6 mg/dL (8.5-10.1)
[2018-09-01 01:33] LABS: BUN/Creatinine Ratio 6.7; Bilirubin, Total 0.5 mg/dL (0.2-1.0)
[2018-09-01 01:34] LABS: Potassium 6.8 mmol/L (3.5-5.1)
[2018-09-01] MEDS ORDERED: CALCIUM GLUC 4.65meq/50ml D5AE 50 ML IV ONE ×2 (01:45→12:30)
[2018-09-01] MEDS ORDERED: hydrALAZINE HCL 10 MG TAB PO PRN (01:45)
[2018-09-01] MEDS ORDERED: InsuLIN REG 1unit/0.01ml Soln (100units/ml) IV ONE (01:45)
[2018-09-01] MEDS ORDERED: MORPHINE SULFATE 4 MG/ML SYR/VIAL IV PRN (01:45)
[2018-09-01] MEDS ORDERED: SODIUM BICARBONATE 8.4 % INJ 50ML VIAL IV ONE (01:45)
[2018-09-01] MEDS ORDERED: DEXTROSE (50%) 50ML SYRG IV ONE (01:45)
[2018-09-01] MEDS: hydrALAZINE HCL 20 MG/ML VL IV PRN ×3 (04:19→23:01)
[2018-09-01] MEDS: SODIUM CHLOR 0.9% PF (SALINE LOCK) 10ML VIAL/SYR IV SCH ×3 (05:28→20:21)
[2018-09-01] MEDS: FUROSEMIDE 20 MG TAB PO SCH (05:29)
[2018-09-01] MEDS: cloNIDine HCL 0.1 MG TAB PO SCH ×3 (05:29→21:44)
[2018-09-01] MEDS: MORPHINE SULFATE 10 MG/ML INJ 1ML SDV IV PRN ×2 (06:34→08:37)
[2018-09-01] MEDS: ACCU-CHEK COMFORT CURVE STRIP VI SCH ×4 (06:37→22:00)
[2018-09-01] MEDS: InsuLIN REG 1unit/0.01ml Soln (100units/ml) SC SCH ×4 (06:38→22:48)
[2018-09-01] MEDS: CALCIUM ACETATE 667 MG CAP PO SCH ×3 (08:32→17:39)
[2018-09-01] MEDS ORDERED: SODIUM POLYSTYRENE SULF 15 GM POWDER PO ONE (08:45)
[2018-09-01] MEDS: B-COMPLEX W/ C & FOLIC ACID(NEPHROVITE TAB) PO SCH (10:00)
[2018-09-01] MEDS: DOCUSATE SOD 100 MG CAP PO SCH (10:00)
[2018-09-01] MEDS: ASPirin 81 mg TAB PO SCH (10:00)
[2018-09-01] MEDS: FOLIC ACID 1 MG TAB PO SCH (10:00)
[2018-09-01] MEDS: CHOLECALCIFEROL (VITD3) 1,000 UNIT TAB PO SCH (10:00)
[2018-09-01] MEDS ORDERED: LOSARTAN POTASSIUM 50 MG TAB PO SCH (10:00)
[2018-09-01] MEDS: ONDANSETRON HCL 4 MG/2 ML VIAL IV PRN ×2 (11:24→22:51)
[2018-09-01 11:55] LABS: BUN/Creatinine Ratio 7.2; Calcium 9.2 mg/dL (8.5-10.1)
[2018-09-01 12:04] LABS: Potassium 6.6 mmol/L (3.5-5.1)
[2018-09-01] MEDS ORDERED: PANTOPRAZOLE 40 MG TAB PO ONE (12:30)
[2018-09-01] MEDS: CARVEDILOL 12.5 MG TAB PO SCH ×2 (12:36→21:45)
[2018-09-01] MEDS ORDERED: KETOROLAC TROMETH 30 MG/ML 1ML VIAL IV ONE (13:00)
[2018-09-01 13:58] LABS: Urine Bacteria FEW /hpf (None Seen); Urine Blood TRACE /uL (Negative); Urine Specific Gravity 1.013 (1.001-1.035); Urine WBC 115 /hpf (0 - 5); Urine WBC Clumps PRESENT /hpf (None Seen)
[2018-09-01] MEDS ORDERED: SODIUM CHL 0.9% 1000 ML BAG XX ONE (16:15)
[2018-09-01] MEDS ORDERED: EPOETIN ALFA 3,000 UNIT/1 ML VIAL IV ONE (16:15)
[2018-09-01] MEDS ORDERED: EPOETIN ALFA 2,000 UNIT/1 ML VIAL IV ONE (16:15)
[2018-09-01] MEDS: CLOPIDOGREL BISULFATE 75 MG TAB PO SCH (20:19)
[2018-09-01] MEDS: FLUoxetine HCL 20 MG CAP PO SCH (20:20)
[2018-09-01] MEDS: NIFEdipine ER 30 MG TAB PO SCH (20:21)
[2018-09-01] MEDS: ATORVASTATIN 20 MG TAB PO SCH (21:44)
[2018-09-01] MEDS: HYDROcodone-ACET 5/325MG TAB PO PRN (21:48)
[2018-09-02] VITALS: BP 148/68
[2018-09-02] MEDS: SODIUM CHLOR 0.9% PF (SALINE LOCK) 10ML VIAL/SYR IV SCH ×3 (05:17→21:28)
[2018-09-02] MEDS: cloNIDine HCL 0.1 MG TAB PO SCH ×3 (05:18→21:30)
[2018-09-02 05:50] LABS: BUN/Creatinine Ratio 4.9; Potassium 3.8 mmol/L (3.5-5.1)
[2018-09-02] MEDS: InsuLIN REG 1unit/0.01ml Soln (100units/ml) SC SCH ×4 (06:41→21:36)
[2018-09-02] MEDS: ACCU-CHEK COMFORT CURVE STRIP VI SCH ×4 (06:41→21:35)
[2018-09-02] MEDS ORDERED: IODIXANOL 320MG/ML 100ML BTL IV ONE (07:59)
[2018-09-02 08:00] VITALS: BP 158/69
[2018-09-02] MEDS: CALCIUM ACETATE 667 MG CAP PO SCH ×3 (08:00→17:45)
[2018-09-02] MEDS ORDERED: LIDOCAINE 2%HCL (LOCAL ANESTH.) INJ 20ML MDV ONE (08:00)
[2018-09-02] MEDS ORDERED: ANGIOMAX 250 MG VIAL IV ONE (08:18)
[2018-09-02] MEDS ORDERED: fentaNYL CITRATE 100 MCG/2 ML VL ONE (08:19)
[2018-09-02] MEDS ORDERED: MIDAZOLAM HCL 1MG/1ML-2 ML VIAL ONE (08:19)
[2018-09-02] MEDS ORDERED: SODIUM CHL 0.9% 0 ML ONE (08:19)
[2018-09-02] MEDS ORDERED: TERA10CA36 PO (09:39)
[2018-09-02] MEDS: DOCUSATE SOD 100 MG CAP PO SCH (10:00)
[2018-09-02] MEDS: ASPirin 81 mg TAB PO SCH (10:00)
[2018-09-02] MEDS: CARVEDILOL 12.5 MG TAB PO SCH ×2 (10:00→21:29)
[2018-09-02] MEDS: FOLIC ACID 1 MG TAB PO SCH (10:47)
[2018-09-02] MEDS: CHOLECALCIFEROL (VITD3) 1,000 UNIT TAB PO SCH (10:47)
[2018-09-02] MEDS: PANTOPRAZOLE 40 MG TAB PO SCH (10:47)
[2018-09-02] MEDS: CLOPIDOGREL BISULFATE 75 MG TAB PO SCH (10:47)
[2018-09-02] MEDS: B-COMPLEX W/ C & FOLIC ACID(NEPHROVITE TAB) PO SCH (10:47)
[2018-09-02] MEDS: FLUoxetine HCL 20 MG CAP PO SCH (10:48)
[2018-09-02] MEDS: NIFEdipine ER 30 MG TAB PO SCH (10:49)
[2018-09-02] MEDS ORDERED: cefTRIAXone 1GM/50ML D5W 50 ML IV ONE (11:30)
[2018-09-02 12:00] VITALS: BP 142/66
[2018-09-02 16:00] VITALS: BP 139/67
[2018-09-02 20:02] VITALS: BP 166/76
[2018-09-02] MEDS: ATORVASTATIN 20 MG TAB PO SCH (21:28)
[2018-09-03] MEDS: hydrALAZINE HCL 20 MG/ML VL IV PRN (04:06)
[2018-09-03] MEDS: HYDROcodone-ACET 5/325MG TAB PO PRN ×2 (04:10→08:08)
[2018-09-03] MEDS: cloNIDine HCL 0.1 MG TAB PO SCH ×2 (06:00→12:46)
[2018-09-03] MEDS: SODIUM CHLOR 0.9% PF (SALINE LOCK) 10ML VIAL/SYR IV SCH ×2 (06:27→14:13)
[2018-09-03] MEDS: ACCU-CHEK COMFORT CURVE STRIP VI SCH ×2 (06:46→11:30)
[2018-09-03] MEDS: InsuLIN REG 1unit/0.01ml Soln (100units/ml) SC SCH ×2 (06:47→11:30)
[2018-09-03] MEDS ORDERED: EPOETIN ALFA 3,000 UNIT/1 ML VIAL IV ONE (07:30)
[2018-09-03] MEDS ORDERED: EPOETIN ALFA 2,000 UNIT/1 ML VIAL IV ONE (07:45)
[2018-09-03 09:00] VITALS: BP 167/89
[2018-09-03] MEDS ORDERED: cefTRIAXone 1GM/50ML D5W 50 ML IV SCH (09:00)
[2018-09-03] MEDS: CALCIUM ACETATE 667 MG CAP PO SCH ×2 (10:18→12:45)
[2018-09-03] MEDS: CARVEDILOL 12.5 MG TAB PO SCH (10:18)
[2018-09-03] MEDS: CLOPIDOGREL BISULFATE 75 MG TAB PO SCH (10:18)
[2018-09-03] MEDS: CHOLECALCIFEROL (VITD3) 1,000 UNIT TAB PO SCH (10:19)
[2018-09-03] MEDS: FOLIC ACID 1 MG TAB PO SCH (10:19)
[2018-09-03] MEDS: ASPirin 81 mg TAB PO SCH (10:19)
[2018-09-03] MEDS: B-COMPLEX W/ C & FOLIC ACID(NEPHROVITE TAB) PO SCH (10:19)
[2018-09-03] MEDS: DOCUSATE SOD 100 MG CAP PO SCH (10:19)
[2018-09-03] MEDS: FLUoxetine HCL 20 MG CAP PO SCH (10:19)
[2018-09-03] MEDS: NIFEdipine ER 30 MG TAB PO SCH (10:20)
[2018-09-03] MEDS: PANTOPRAZOLE 40 MG TAB PO SCH (10:20)
[2018-09-03 13:00] VITALS: BP 155/75
[2018-09-03 15:02] VITALS: BP 155/75
== END 2018-09-03 19:00 | disposition home or self-care (01) | DRG 190 ==
LOC: ER 12:33 → OVERFLOW 16:59 → DOU IN ICU 18:45 → TELE-EAST 09-03 05:50
PROVIDERS: ADMIT Internal Medicine; ATTEND Internal Medicine
PROC: 5A1D70Z Performance of Urinary Filtration, Intermittent, Less than 6 Hours Per Day (ICD-10-PCS; 2018-09-01)
PROC: 4A023N7 Measurement of Cardiac Sampling and Pressure, Left Heart, Percutaneous Approach (ICD-10-PCS; principal; 2018-09-02)
PROC: B2111ZZ Fluoroscopy of Multiple Coronary Arteries using Low Osmolar Contrast (ICD-10-PCS; 2018-09-02)
PROC: B2151ZZ Fluoroscopy of Left Heart using Low Osmolar Contrast (ICD-10-PCS; 2018-09-02)
PROC: 5A1D70Z Performance of Urinary Filtration, Intermittent, Less than 6 Hours Per Day (ICD-10-PCS; 2018-09-03)
DX: I21.4 Non-ST elevation (NSTEMI) myocardial infarction (principal); E11.21 Type 2 diabetes mellitus with diabetic nephropathy; E11.65 Type 2 diabetes mellitus with hyperglycemia; E87.8 Other disorders of electrolyte and fluid balance, not elsewhere classified; N18.6 End stage renal disease; E87.1 Hypo-osmolality and hyponatremia; E87.5 Hyperkalemia; E83.41 Hypermagnesemia; F32.9 Major depressive disorder, single episode, unspecified; D64.9 Anemia, unspecified; E11.22 Type 2 diabetes mellitus with diabetic chronic kidney disease; E78.5 Hyperlipidemia, unspecified; N39.0 Urinary tract infection, site not specified; E87.6 Hypokalemia; F41.9 Anxiety disorder, unspecified; I13.11 Hypertensive heart and chronic kidney disease without heart failure, with stage 5 chronic kidney disease, or end stage renal disease; I25.10 Atherosclerotic heart disease of native coronary artery without angina pectoris; Z99.2 Dependence on renal dialysis; Z95.1 Presence of aortocoronary bypass graft; Z90.49 Acquired absence of other specified parts of digestive tract; Z79.899 Other long term (current) drug therapy; Z79.82 Long term (current) use of aspirin
CPT/HCPCS: 36415; 71046; 80048; 80053; 80061; 81001; 82962; 83036; 83735; 83880; 84132; 84443; 84484; 85025; 85610; 87081; 90935; 93005; 93306; 93458; 94761; 96372; 96374; 96375; 99152; A6257; G0378; J0610; J0696; J1642; J1815; J1885; J2250; J2405; Q4081; Q9967

== ENCOUNTER 2020-08-05 12:18 | Emergency (ER) | payer MEDICAID ==
[~2020-08-05] VITALS: Ht 157.5 cm; Wt 49.9 kg
[~2020-08-05 12:18] MED LIST changes: +CLON0.2T PO; +FURO1TAB33 PO; -FURO20TA3 PO; +LOSA-39 PO; -LOSA-46 PO; -NIFE90TA30 PO; +NIFE90TA49 PO; +TERA10CA36 PO
[2020-08-05] MEDS ORDERED: amLODIPine BESYLATE 5 MG TAB PO ONE (13:00)
[2020-08-05 13:32] LABS: Basophils # (auto) 0.1 10 ^3/uL (0-0.2); Eosinophils # (auto) 0.1 10 ^3/uL (0-0.8); Hemoglobin 12.5 g/dL (12.2-16.2); Nucleated Red Blood Cells % 0.1 %
[2020-08-05 13:33] LABS: Hematocrit 36.5 % (36.0-46.0); Lymphocytes # (auto) 1.3 10 ^3/uL (0.4-5.4); Lymphocytes % (auto) 24.3 % (10.0-50.0); Mean Corpuscular Hemoglobin 34.6 pg (28.0-32.0); Mean Corpuscular Hgb Conc. 34.3 g/dL (32.0-36.0); Mean Corpuscular Volume 100.8 fL (80.0-100.0); Monocytes # (auto) 0.4 10 ^3/uL (0-1.3); Monocytes % (auto) 8.1 % (0.0-12.0); Neutrophils # (auto) 3.6 10 ^3/uL (1.6-8.6); Neutrophils % (auto) 64.6 % (37.0-80.0); Platelet Count (auto) 171 10^3/uL (140-450); Red Blood Cells 3.62 10^6/uL (4.0-5.20); Red Cell Distribution Width 13.6 % (11.8-14.3); White Blood Cell 5.6 10^3/uL (4.4-10.8)
[2020-08-05 13:48] LABS: Albumin 3.9 g/dL (3.4-5.0); Potassium 4.6 mmol/L (3.5-5.1)
[2020-08-05 13:54] LABS: BUN/Creatinine Ratio 4.2; Bilirubin, Total 0.6 mg/dL (0.2-1.0); Total Protein 8.3 g/dL (6.4-8.2)
[2020-08-05] MEDS ORDERED: cloNIDine HCL 0.1 MG TAB PO ONE (16:30)
[2020-08-05 21:16] VITALS: BP 170/78
== END 2020-08-05 21:20 | disposition home or self-care (01) ==
LOC: ER 12:18
DX: T78.49XA Other allergy, initial encounter (principal); I16.0 Hypertensive urgency; I12.9 Hypertensive chronic kidney disease with stage 1 through stage 4 chronic kidney disease, or unspecified chronic kidney disease; E11.22 Type 2 diabetes mellitus with diabetic chronic kidney disease; N18.9 Chronic kidney disease, unspecified; F41.9 Anxiety disorder, unspecified; I25.10 Atherosclerotic heart disease of native coronary artery without angina pectoris; F32.9 Major depressive disorder, single episode, unspecified; E78.5 Hyperlipidemia, unspecified; Z99.2 Dependence on renal dialysis; Z79.899 Other long term (current) drug therapy; Z90.49 Acquired absence of other specified parts of digestive tract; X58.XXXA Exposure to other specified factors, initial encounter
CPT/HCPCS: 36415; 71045; 80053; 84484; 85025

== ENCOUNTER 2021-07-03 07:39 | Emergency (ER) | payer MEDICAID ==
[~2021-07-03] VITALS: Ht 157.5 cm; Wt 68.0 kg
[~2021-07-03 07:39] MED LIST changes: +ATOR-47 PO; -ATOR1TAB PO
[2021-07-03 08:22] LABS: Basophils # (auto) 0 10 ^3/uL (0-0.2); Eosinophils # (auto) 0.1 10 ^3/uL (0-0.8); Hemoglobin 10.2 g/dL (12.2-16.2); Lymphocytes # (auto) 0.9 10 ^3/uL (0.4-5.4); Mean Corpuscular Hemoglobin 34.5 pg (28.0-32.0); Monocytes # (auto) 0.4 10 ^3/uL (0-1.3); Red Cell Distribution Width 12.9 % (11.8-14.3); White Blood Cell 6.7 10^3/uL (4.4-10.8)
[2021-07-03 08:25] LABS: Basophils % (auto) 0.7 % (0.0-2.0); Eosinophils % (auto) 1.5 % (0.0-7.0); Hematocrit 29.4 % (36.0-46.0); Lymphocytes % (auto) 13.3 % (10.0-50.0); Mean Corpuscular Hgb Conc. 34.7 g/dL (32.0-36.0); Mean Corpuscular Volume 99.2 fL (80.0-100.0); Monocytes % (auto) 6.5 % (0.0-12.0); Neutrophils # (auto) 5.3 10 ^3/uL (1.6-8.6); Nucleated Red Blood Cells % 0.1 %; Red Blood Cells 2.97 10^6/uL (4.0-5.20)
[2021-07-03 08:37] LABS: Albumin 3.5 g/dL (3.4-5.0); Calcium 9.3 mg/dL (8.5-10.1); Potassium 3.6 mmol/L (3.5-5.1)
[2021-07-03 08:40] LABS: BUN/Creatinine Ratio 4.3; Bilirubin, Total 0.8 mg/dL (0.2-1.0); Total Protein 7.6 g/dL (6.4-8.2)
[2021-07-03 09:32] LABS: INR 1.06 (0.9-1.15)
[2021-07-03 14:05] VITALS: BP 162/64
== END 2021-07-03 15:04 | disposition home or self-care (01) ==
LOC: ER 07:39 → EDBD 07:39 → ER 15:04
DX: T82.838A Hemorrhage due to vascular prosthetic devices, implants and grafts, initial encounter (principal); D64.9 Anemia, unspecified; R42 Dizziness and giddiness; F41.9 Anxiety disorder, unspecified; K21.9 Gastro-esophageal reflux disease without esophagitis; I13.2 Hypertensive heart and chronic kidney disease with heart failure and with stage 5 chronic kidney disease, or end stage renal disease; E11.22 Type 2 diabetes mellitus with diabetic chronic kidney disease; N18.6 End stage renal disease; I25.10 Atherosclerotic heart disease of native coronary artery without angina pectoris; E78.5 Hyperlipidemia, unspecified; F32.9 Major depressive disorder, single episode, unspecified; Z99.2 Dependence on renal dialysis; Z79.4 Long term (current) use of insulin; Z79.899 Other long term (current) drug therapy; Z90.49 Acquired absence of other specified parts of digestive tract
CPT/HCPCS: 36415; 80053; 85025; 85610

== ENCOUNTER 2021-09-11 01:40 | Inpatient (IN) | payer MEDICAID ==
[~2021-09-11] VITALS: Ht 157.5 cm; Wt 55.0 kg
[2021-09-11 02:24] LABS: Basophils # (auto) 0.1 10 ^3/uL (0-0.2); Basophils % (auto) 1.3 % (0.0-2.0); Eosinophils # (auto) 0.2 10 ^3/uL (0-0.8); Eosinophils % (auto) 2.4 % (0.0-7.0); Hemoglobin 9.1 g/dL (12.2-16.2); Lymphocytes % (auto) 14.8 % (10.0-50.0); Mean Corpuscular Hemoglobin 32.5 pg (28.0-32.0); Mean Corpuscular Hgb Conc. 33.6 g/dL (32.0-36.0); Mean Corpuscular Volume 96.7 fL (80.0-100.0); Monocytes # (auto) 0.3 10 ^3/uL (0-1.3); Monocytes % (auto) 4.4 % (0.0-12.0); Neutrophils % (auto) 77.1 % (37.0-80.0); Nucleated Red Blood Cells % 0.1 %; Red Blood Cells 2.79 10^6/uL (4.0-5.20); Red Cell Distribution Width 14.5 % (11.8-14.3); White Blood Cell 6.5 10^3/uL (4.4-10.8)
[2021-09-11 02:43] LABS: Albumin 3.6 g/dL (3.4-5.0); Calcium 7.7 mg/dL (8.5-10.1); Potassium 4.4 mmol/L (3.5-5.1)
[2021-09-11 02:49] LABS: BUN/Creatinine Ratio 4.7; Bilirubin, Total 0.6 mg/dL (0.2-1.0); Total Protein 7.4 g/dL (6.4-8.2)
[2021-09-11] MEDS ORDERED: HYDROcodone-ACET 5/325MG TAB PO ONE (06:30)
[2021-09-11] MEDS ORDERED: ENOXAPARIN SOD 60 MG/0.6 ML SYRINGE SC ONE (09:00)
[2021-09-11] MEDS ORDERED: ACETAMINOPHEN 325 MG TAB PO PRN (11:45)
[2021-09-11] MEDS ORDERED: MORPHINE SULFATE INJECTION 2 MG/ML SYRG IV PRN (11:45)
[2021-09-11] MEDS ORDERED: NITROGLYCERIN 0.4 MG SL TAB SL PRN (11:45)
[2021-09-11] MEDS: HYDROcodone-ACET 5/325MG TAB PO PRN ×2 (15:29→23:27)
[2021-09-11 22:00] VITALS: BP 170/80
[2021-09-11] MEDS ORDERED: CARVEDILOL 12.5 MG TAB PO ONE (23:15)
[2021-09-11] MEDS ORDERED: cloNIDine HCL 0.1 MG TAB PO ONE (23:15)
[2021-09-12] VITALS (8 sets, daily range): BP systolic 170–251; BP diastolic 72–117
[2021-09-12] MEDS: cloNIDine HCL 0.1 MG TAB PO SCH ×3 (04:17→21:56)
[2021-09-12] MEDS ORDERED: CINA30TA14 PO (04:46)
[2021-09-12] MEDS ORDERED: FERR1TAB17 PO (04:46)
[2021-09-12] MEDS ORDERED: amLODIPine BESYLATE 5 MG TAB PO ONE ×2 (07:30→10:45)
[2021-09-12] MEDS ORDERED: DEXTROSE (50%) 50ML SYRG IV PRN (07:30)
[2021-09-12] MEDS: CARVEDILOL 12.5 MG TAB PO SCH ×2 (09:01→21:56)
[2021-09-12] MEDS: hydrALAZINE HCL 20 MG/ML VL IV PRN (09:02)
[2021-09-12] MEDS: LOSARTAN POTASSIUM 50 MG TAB PO SCH (09:02)
[2021-09-12] MEDS ORDERED: NITROGLYCERIN 50MG/250ML 250 ML IV SCH (09:30)
[2021-09-12] MEDS ORDERED: ENALAPRILAT 1.25 MG/ML-1ML VIAL IV PRN (10:45)
[2021-09-12] MEDS ORDERED: METOPROLOL TARTRATE 1MG/1ML-5ML VIAL IV PRN (10:45)
[2021-09-12 11:27] LABS: Calcium 8.3 mg/dL (8.5-10.1)
[2021-09-12 11:35] LABS: Potassium 5.7 mmol/L (3.5-5.1)
[2021-09-12] MEDS: ACCU-CHEK COMFORT CURVE STRIP VI SCH ×3 (11:56→21:57)
[2021-09-12] MEDS: InsuLIN REG 1unit/0.01ml Soln (100units/ml) SC SCH ×3 (11:57→22:19)
[2021-09-12] MEDS ORDERED: SODIUM CHL 0.9% 1000 ML BAG XX ONE (12:22)
[2021-09-12 12:32] LABS: Basophils # (auto) 0.1 10 ^3/uL (0-0.2); Basophils % (auto) 1.4 % (0.0-2.0); Eosinophils # (auto) 0.1 10 ^3/uL (0-0.8); Eosinophils % (auto) 2.1 % (0.0-7.0); Hematocrit 26.9 % (36.0-46.0); Hemoglobin 8.8 g/dL (12.2-16.2); Lymphocytes # (auto) 1.2 10 ^3/uL (0.4-5.4); Lymphocytes % (auto) 18.4 % (10.0-50.0); Mean Corpuscular Hemoglobin 31.9 pg (28.0-32.0); Mean Corpuscular Hgb Conc. 32.7 g/dL (32.0-36.0); Mean Corpuscular Volume 97.5 fL (80.0-100.0); Monocytes # (auto) 0.3 10 ^3/uL (0-1.3); Neutrophils # (auto) 4.6 10 ^3/uL (1.6-8.6); Neutrophils % (auto) 73.1 % (37.0-80.0); Nucleated Red Blood Cells % 0.1 %; Red Blood Cells 2.76 10^6/uL (4.0-5.20); White Blood Cell 6.3 10^3/uL (4.4-10.8)
[2021-09-12] MEDS: MINOXIDIL 2.5 MG TAB PO SCH ×2 (15:25→22:06)
[2021-09-12] MEDS: HYDROcodone-ACET 5/325MG TAB PO PRN (17:18)
[2021-09-12] MEDS: TERAZOSIN HCL 1 MG CAP PO SCH (21:57)
[2021-09-13 05:00] VITALS: BP 164/72
[2021-09-13] MEDS: ACCU-CHEK COMFORT CURVE STRIP VI SCH ×4 (06:10→23:55)
[2021-09-13] MEDS: cloNIDine HCL 0.1 MG TAB PO SCH ×3 (06:10→23:53)
[2021-09-13] MEDS: InsuLIN REG 1unit/0.01ml Soln (100units/ml) SC SCH ×3 (06:20→17:00)
[2021-09-13] MEDS: HYDROcodone-ACET 5/325MG TAB PO PRN ×3 (06:24→23:58)
[2021-09-13 08:00] VITALS: BP 187/76
[2021-09-13] MEDS: MINOXIDIL 2.5 MG TAB PO SCH ×2 (10:00→23:54)
[2021-09-13] MEDS ORDERED: amLODIPine BESYLATE 5 MG TAB PO SCH (10:00)
[2021-09-13] MEDS: CARVEDILOL 12.5 MG TAB PO SCH ×2 (10:31→23:54)
[2021-09-13] MEDS: LOSARTAN POTASSIUM 50 MG TAB PO SCH (10:31)
[2021-09-13] MEDS: NIFEdipine ER 30 MG TAB PO SCH (10:33)
[2021-09-13 12:00] VITALS: BP 183/68
[2021-09-13] MEDS: hydrALAZINE HCL 20 MG/ML VL IV PRN (14:05)
[2021-09-13] MEDS ORDERED: hydrALAZINE HCL 25 MG TAB PO SCH (14:45)
[2021-09-13] MEDS: hydrALAZINE HCL 25 MG TAB PO SCH ×2 (15:05→22:00)
[2021-09-13 17:00] VITALS: BP 99/44
[2021-09-13] MEDS: SUCRALFATE 1 GM/10 ML ORAL SUSP PO SCH ×2 (18:19→23:52)
[2021-09-13 22:00] VITALS: BP 125/58
[2021-09-13] MEDS ORDERED: TERAZOSIN HCL 5 MG CAP ONE (23:43)
[2021-09-13] MEDS: TERAZOSIN HCL 1 MG CAP PO SCH (23:54)
[2021-09-14] MEDS: InsuLIN REG 1unit/0.01ml Soln (100units/ml) SC SCH ×3 (00:15→11:30)
[2021-09-14 05:00] VITALS: BP 99/47
[2021-09-14] MEDS: hydrALAZINE HCL 25 MG TAB PO SCH ×2 (06:00→14:00)
[2021-09-14] MEDS: ACCU-CHEK COMFORT CURVE STRIP VI SCH ×2 (06:32→11:48)
[2021-09-14] MEDS: SUCRALFATE 1 GM/10 ML ORAL SUSP PO SCH ×2 (06:32→11:47)
[2021-09-14] MEDS: cloNIDine HCL 0.1 MG TAB PO SCH ×2 (06:32→14:00)
[2021-09-14 06:53] LABS: Hematocrit 25.6 % (36.0-46.0); Hemoglobin 8.6 g/dL (12.2-16.2)
[2021-09-14] MEDS ORDERED: SODIUM CHL 0.9% 1000 ML BAG XX ONE (07:00)
[2021-09-14] MEDS: CARVEDILOL 12.5 MG TAB PO SCH (10:00)
[2021-09-14] MEDS: LOSARTAN POTASSIUM 50 MG TAB PO SCH (10:00)
[2021-09-14] MEDS: NIFEdipine ER 30 MG TAB PO SCH (10:00)
[2021-09-14] MEDS ORDERED: PANTOPRAZOLE 40 MG TAB PO SCH (10:00)
[2021-09-14] MEDS: MINOXIDIL 2.5 MG TAB PO SCH (10:00)
[2021-09-14] MEDS ORDERED: LOSA-39 PO (11:42)
[2021-09-14] MEDS ORDERED: CARV12.544 PO (11:42)
[2021-09-14] MEDS ORDERED: CLON0.2T PO (11:42)
[2021-09-14] MEDS ORDERED: PANT40T PO (11:42)
[2021-09-14] MEDS ORDERED: NIFE90TA49 PO (11:42)
[2021-09-14] MEDS ORDERED: MIN25T PO (11:42)
[2021-09-14] MEDS ORDERED: SUCR1SUS10 PO (11:42)
[2021-09-14] MEDS: HYDROcodone-ACET 5/325MG TAB PO PRN (15:03)
[2021-09-14 15:47] VITALS: BP 116/50
[2021-09-14] MEDS ORDERED: EPOETIN ALFA-EPBX 4,000 UNIT/ML VIAL SC ONE (21:00)
== END 2021-09-14 16:45 | disposition home or self-care (01) | DRG 199 ==
LOC: ER 01:40 → TELE 12:38 → TELE-WESTW 19:49
PROVIDERS: ADMIT Internal Medicine; ATTEND Internal Medicine
PROC: 5A1D70Z Performance of Urinary Filtration, Intermittent, Less than 6 Hours Per Day (ICD-10-PCS; principal; 2021-09-12)
PROC: 5A1D70Z Performance of Urinary Filtration, Intermittent, Less than 6 Hours Per Day (ICD-10-PCS; 2021-09-14)
DX: I16.1 Hypertensive emergency (principal); J90 Pleural effusion, not elsewhere classified; N18.6 End stage renal disease; D63.1 Anemia in chronic kidney disease; I12.0 Hypertensive chronic kidney disease with stage 5 chronic kidney disease or end stage renal disease; Z99.2 Dependence on renal dialysis; E87.5 Hyperkalemia; J98.11 Atelectasis; F32.9 Major depressive disorder, single episode, unspecified; Z20.822 Contact with and (suspected) exposure to COVID-19; E11.22 Type 2 diabetes mellitus with diabetic chronic kidney disease; E11.43 Type 2 diabetes mellitus with diabetic autonomic (poly)neuropathy; E78.5 Hyperlipidemia, unspecified; I25.10 Atherosclerotic heart disease of native coronary artery without angina pectoris; K57.30 Diverticulosis of large intestine without perforation or abscess without bleeding; Z79.899 Other long term (current) drug therapy; Z82.49 Family history of ischemic heart disease and other diseases of the circulatory system; Z82.5 Family history of asthma and other chronic lower respiratory diseases; Z83.3 Family history of diabetes mellitus; Z86.73 Personal history of transient ischemic attack (TIA), and cerebral infarction without residual deficits; Z90.49 Acquired absence of other specified parts of digestive tract
CPT/HCPCS: 36415; 71045; 74176; 80048; 80053; 82962; 83735; 83880; 84484; 85014; 85018; 85025; 87340; 87426; 90935; 93005; 93306; 96372; G0378; J1815

== ENCOUNTER 2021-10-25 06:51 | Inpatient (IN) | payer MEDICAID ==
[~2021-10-25] VITALS: Ht 162.6 cm; Wt 49.9 kg
[~2021-10-25 06:51] MED LIST changes: +CINA30TA14 PO; +FERR1TAB17 PO; +MIN25T PO; +PANT40T PO; +SUCR1SUS10 PO
[2021-10-25 08:10] LABS: Basophils # (auto) 0.1 10 ^3/uL (0-0.2); Basophils % (auto) 1.3 % (0.0-2.0); Eosinophils # (auto) 0.1 10 ^3/uL (0-0.8); Eosinophils % (auto) 2.9 % (0.0-7.0); Hematocrit 25.4 % (36.0-46.0); Hemoglobin 8.5 g/dL (12.2-16.2); Lymphocytes # (auto) 0.9 10 ^3/uL (0.4-5.4); Lymphocytes % (auto) 17.7 % (10.0-50.0); Mean Corpuscular Hemoglobin 32.7 pg (28.0-32.0); Mean Corpuscular Hgb Conc. 33.3 g/dL (32.0-36.0); Mean Corpuscular Volume 98.2 fL (80.0-100.0); Monocytes # (auto) 0.4 10 ^3/uL (0-1.3); Monocytes % (auto) 8.2 % (0.0-12.0); Neutrophils # (auto) 3.5 10 ^3/uL (1.6-8.6); Neutrophils % (auto) 69.9 % (37.0-80.0); Nucleated Red Blood Cells % 0.1 %; Red Blood Cells 2.58 10^6/uL (4.0-5.20); Red Cell Distribution Width 16.8 % (11.8-14.3)
[2021-10-25] MEDS ORDERED: SODIUM CHLORIDE 0.9% 1,000 ML IV ONE (08:30)
[2021-10-25 08:35] LABS: Albumin 3.4 g/dL (3.4-5.0); Calcium 8.7 mg/dL (8.5-10.1); Potassium 3.2 mmol/L (3.5-5.1)
[2021-10-25 08:41] LABS: BUN/Creatinine Ratio 3.6; Bilirubin, Total 0.5 mg/dL (0.2-1.0); Total Protein 7.2 g/dL (6.4-8.2)
[2021-10-25 09:47] LABS: Basophils # (auto) 0.1 10 ^3/uL (0-0.2); Basophils % (auto) 1.1 % (0.0-2.0); Eosinophils # (auto) 0.1 10 ^3/uL (0-0.8); Eosinophils % (auto) 2.7 % (0.0-7.0); Hematocrit 25.3 % (36.0-46.0); Hemoglobin 8.6 g/dL (12.2-16.2); Lymphocytes % (auto) 20.1 % (10.0-50.0); Mean Corpuscular Hemoglobin 33.1 pg (28.0-32.0); Mean Corpuscular Hgb Conc. 33.8 g/dL (32.0-36.0); Mean Corpuscular Volume 97.9 fL (80.0-100.0); Monocytes # (auto) 0.6 10 ^3/uL (0-1.3); Monocytes % (auto) 11.9 % (0.0-12.0); Neutrophils # (auto) 3.3 10 ^3/uL (1.6-8.6); Neutrophils % (auto) 64.2 % (37.0-80.0); Red Blood Cells 2.59 10^6/uL (4.0-5.20); Red Cell Distribution Width 16.4 % (11.8-14.3); White Blood Cell 5.1 10^3/uL (4.4-10.8)
[2021-10-25] MEDS ORDERED: METOPROLOL TARTRATE 1MG/1ML-5ML VIAL IV ONE (12:00)
[2021-10-25] MEDS ORDERED: SPIRONOLACTONE 25 MG TAB PO ONE (12:00)
[2021-10-25] MEDS ORDERED: FUROSEMIDE 40 MG/4 ML VIAL IV ONE (12:00)
[2021-10-25] MEDS ORDERED: NITROGLYCERIN 0.4 MG SL TAB SL PRN (13:15)
[2021-10-25] MEDS ORDERED: ACETAMINOPHEN 325 MG TAB PO PRN (13:15)
[2021-10-25] MEDS ORDERED: HYDROcodone-ACET 5/325MG TAB PO PRN (13:15)
[2021-10-25] MEDS ORDERED: DOCUSATE SOD 100 MG CAP PO PRN (13:15)
[2021-10-25] MEDS ORDERED: MORPHINE SULFATE INJECTION 2 MG/ML SYRG IV PRN (13:15)
[2021-10-25] MEDS: POTASSIUM CHL 10MEQ/50ML 50 ML IV SCH ×2 (14:17→15:02)
[2021-10-25] MEDS ORDERED: HEPARIN SODIUM (PORCINE) 5000 UNITS/ML 1ML VIAL IV ONE (20:45)
[2021-10-25] MEDS ORDERED: HEPARIN DRIP/D5W 100UNITS/ML 250 ML IV SCH (20:45)
[2021-10-25 21:46] LABS: Basophils # (auto) 0.1 10 ^3/uL (0-0.2); Basophils % (auto) 1.4 % (0.0-2.0); Eosinophils # (auto) 0.2 10 ^3/uL (0-0.8); Eosinophils % (auto) 4.2 % (0.0-7.0); Hematocrit 26.4 % (36.0-46.0); Lymphocytes # (auto) 1.3 10 ^3/uL (0.4-5.4); Lymphocytes % (auto) 30.9 % (10.0-50.0); Mean Corpuscular Hemoglobin 33.4 pg (28.0-32.0); Mean Corpuscular Volume 98.3 fL (80.0-100.0); Monocytes # (auto) 0.4 10 ^3/uL (0-1.3); Monocytes % (auto) 8.4 % (0.0-12.0); Neutrophils # (auto) 2.3 10 ^3/uL (1.6-8.6); Neutrophils % (auto) 55.1 % (37.0-80.0); Nucleated Red Blood Cells % 0.1 %; Red Blood Cells 2.69 10^6/uL (4.0-5.20); Red Cell Distribution Width 16.7 % (11.8-14.3); White Blood Cell 4.2 10^3/uL (4.4-10.8)
[2021-10-25 22:01] LABS: INR 1.13 (0.9-1.15)
[2021-10-26 07:16] LABS: Basophils # (auto) 0.1 10 ^3/uL (0-0.2); Basophils % (auto) 1.5 % (0.0-2.0); Eosinophils # (auto) 0.2 10 ^3/uL (0-0.8); Eosinophils % (auto) 3.9 % (0.0-7.0); Hematocrit 26.7 % (36.0-46.0); Lymphocytes # (auto) 1.1 10 ^3/uL (0.4-5.4); Mean Corpuscular Hemoglobin 32.9 pg (28.0-32.0); Mean Corpuscular Hgb Conc. 33.8 g/dL (32.0-36.0); Mean Corpuscular Volume 97.4 fL (80.0-100.0); Monocytes # (auto) 0.3 10 ^3/uL (0-1.3); Monocytes % (auto) 6.6 % (0.0-12.0); Neutrophils # (auto) 2.7 10 ^3/uL (1.6-8.6); Nucleated Red Blood Cells % 0.1 %; Red Blood Cells 2.75 10^6/uL (4.0-5.20); Red Cell Distribution Width 16.3 % (11.8-14.3); White Blood Cell 4.2 10^3/uL (4.4-10.8)
[2021-10-26 07:37] LABS: Potassium 4.5 mmol/L (3.5-5.1)
[2021-10-26 07:56] LABS: Calcium 9.5 mg/dL (8.5-10.1)
[2021-10-26 13:55] LABS: INR 1.1 (0.9-1.15); Partial Thromboplastin Time 50.1 sec (23.6-33.0)
[2021-10-26 16:09] VITALS: BP 150/64
[2021-10-26] MEDS ORDERED: ASPI-543 PO (18:10)
== END 2021-10-26 20:02 | disposition home or self-care (01) | DRG 199 ==
LOC: ER 06:51 → EDBD 06:51 → TELE 06:52 → UNDOADMIN 13:03 → TELE 13:03 → ER 10-26 13:05
PROVIDERS: ADMIT Internal Medicine; ATTEND Internal Medicine
PROC: 5A1D70Z Performance of Urinary Filtration, Intermittent, Less than 6 Hours Per Day (ICD-10-PCS; principal; 2021-10-26)
DX: I16.0 Hypertensive urgency (principal); I21.4 Non-ST elevation (NSTEMI) myocardial infarction; N18.6 End stage renal disease; E11.22 Type 2 diabetes mellitus with diabetic chronic kidney disease; I25.10 Atherosclerotic heart disease of native coronary artery without angina pectoris; I13.2 Hypertensive heart and chronic kidney disease with heart failure and with stage 5 chronic kidney disease, or end stage renal disease; E78.5 Hyperlipidemia, unspecified; R07.89 Other chest pain; E87.6 Hypokalemia; Z20.822 Contact with and (suspected) exposure to COVID-19; F41.9 Anxiety disorder, unspecified; F32.9 Major depressive disorder, single episode, unspecified; I50.9 Heart failure, unspecified; Z99.2 Dependence on renal dialysis; Z83.3 Family history of diabetes mellitus; Z82.5 Family history of asthma and other chronic lower respiratory diseases; Z84.1 Family history of disorders of kidney and ureter; Z82.49 Family history of ischemic heart disease and other diseases of the circulatory system; Z90.49 Acquired absence of other specified parts of digestive tract
CPT/HCPCS: 36415; 71046; 80048; 80053; 83735; 83880; 84443; 84484; 85025; 85610; 85730; 87340; 87426; 90935; 93005; 96365; 96366; 96367; 96374; 96375; G0378

== ENCOUNTER 2021-11-25 17:17 | Emergency (ER) | payer MEDICAID ==
[~2021-11-25] VITALS: Ht 157.5 cm; Wt 49.0 kg
[~2021-11-25 17:17] MED LIST changes: +ASPI-543 PO
[2021-11-25 17:51] VITALS: BP 185/67
[2021-11-25] MEDS ORDERED: ACET-1080 PO (18:08)
[2021-11-25] MEDS ORDERED: ACETAMINOPHEN 325 MG TAB PO ONE (18:15)
== END 2021-11-25 18:31 | disposition home or self-care (01) ==
LOC: ER 17:17
DX: S63.501A Unspecified sprain of right wrist, initial encounter (principal); I25.10 Atherosclerotic heart disease of native coronary artery without angina pectoris; E78.5 Hyperlipidemia, unspecified; I12.0 Hypertensive chronic kidney disease with stage 5 chronic kidney disease or end stage renal disease; E11.22 Type 2 diabetes mellitus with diabetic chronic kidney disease; N18.6 End stage renal disease; Z90.49 Acquired absence of other specified parts of digestive tract; Z79.82 Long term (current) use of aspirin; Z79.4 Long term (current) use of insulin; Z79.899 Other long term (current) drug therapy; W18.39XA Other fall on same level, initial encounter; Y93.89 Activity, other specified; Y92.89 Other specified places as the place of occurrence of the external cause; Y99.8 Other external cause status
CPT/HCPCS: 73110; 73562

== ENCOUNTER 2022-03-17 19:23 | Emergency (ER) | payer MEDICAID ==
[~2022-03-17] VITALS: Ht 157.5 cm; Wt 49.9 kg
[~2022-03-17 19:23] MED LIST changes: +ACET-1080 PO
[2022-03-17] MEDS ORDERED: KETOROLAC TROMETH 60MG/2ML VIAL IM ONE (22:15)
[2022-03-18 01:45] VITALS: BP 144/88
== END 2022-03-18 01:52 | disposition home or self-care (01) ==
LOC: ER 19:23
DX: M79.10 Myalgia, unspecified site (principal); M79.605 Pain in left leg; M79.602 Pain in left arm; M54.50 Low back pain, unspecified; I12.0 Hypertensive chronic kidney disease with stage 5 chronic kidney disease or end stage renal disease; E11.22 Type 2 diabetes mellitus with diabetic chronic kidney disease; N18.6 End stage renal disease; I25.10 Atherosclerotic heart disease of native coronary artery without angina pectoris; E78.5 Hyperlipidemia, unspecified; Z86.2 Personal history of diseases of the blood and blood-forming organs and certain disorders involving the immune mechanism; Z90.49 Acquired absence of other specified parts of digestive tract; Z79.4 Long term (current) use of insulin; Z79.82 Long term (current) use of aspirin; Z79.899 Other long term (current) drug therapy; W19.XXXA Unspecified fall, initial encounter; Y93.89 Activity, other specified; Y92.89 Other specified places as the place of occurrence of the external cause; Y99.8 Other external cause status
CPT/HCPCS: 72100; 73060; 73090; 73110; 73552; 96372; 99284; J1885

== ENCOUNTER 2022-12-18 09:18 | Emergency (ER) | payer MEDICAID ==
[~2022-12-18] VITALS: Ht 157.5 cm; Wt 52.8 kg
[~2022-12-18 09:18] MED LIST changes: +ACET300T4 PO; +CLON0.1T PO; +DOCU-94 PO; +FAMO20TA10 PO; +INSUINJ37 SC; -LOSA-39 PO; +MAGN400T40 PO; +MYCO360T PO; +SODI5PAK PO; +SODI650T PO; +TACR1CAP4 PO; +VALG450T PO
[2022-12-18 09:51] LABS: Basophils # (auto) 0.1 10 ^3/uL (0-0.2); Basophils % (auto) 0.7 % (0.0-2.0); Eosinophils # (auto) 0.1 10 ^3/uL (0-0.8); Eosinophils % (auto) 1.3 % (0.0-7.0); Hematocrit 40.2 % (36.0-46.0); Hemoglobin 13.6 g/dL (12.2-16.2); Lymphocytes # (auto) 0.7 10 ^3/uL (0.4-5.4); Lymphocytes % (auto) 8.1 % (10.0-50.0); Mean Corpuscular Hemoglobin 32.4 pg (28.0-32.0); Mean Corpuscular Hgb Conc. 33.8 g/dL (32.0-36.0); Mean Corpuscular Volume 95.7 fL (80.0-100.0); Monocytes # (auto) 0.4 10 ^3/uL (0-1.3); Monocytes % (auto) 4.5 % (0.0-12.0); Neutrophils # (auto) 7.5 10 ^3/uL (1.6-8.6); Neutrophils % (auto) 85.4 % (37.0-80.0); Nucleated Red Blood Cells % 0.1 %; Red Cell Distribution Width 13.6 % (11.8-14.3); White Blood Cell 8.8 10^3/uL (4.4-10.8)
[2022-12-18 10:12] LABS: Urine Bacteria NONE SEEN /hpf (None Seen); Urine Blood Negative /uL (Negative); Urine Hyaline Cast FEW /lpf (0 - 2); Urine Specific Gravity 1.013 (1.001-1.035); Urine WBC 32 /hpf (0 - 5)
[2022-12-18 10:36] LABS: Albumin 3.5 g/dL (3.4-5.0); Potassium 4.8 mmol/L (3.5-5.1)
[2022-12-18 10:44] LABS: BUN/Creatinine Ratio 30.8 (10.0-20.0); Bilirubin, Total 0.2 mg/dL (0.2-1.0); Total Protein 7.8 g/dL (6.4-8.2)
[2022-12-18] MEDS ORDERED: NITR-87 PO (10:54)
[2022-12-18 11:31] VITALS: BP 125/75
== END 2022-12-18 11:32 | disposition home or self-care (01) ==
LOC: ER 09:18
DX: E11.22 Type 2 diabetes mellitus with diabetic chronic kidney disease (principal); I12.0 Hypertensive chronic kidney disease with stage 5 chronic kidney disease or end stage renal disease; N18.6 End stage renal disease; E78.5 Hyperlipidemia, unspecified; Z90.49 Acquired absence of other specified parts of digestive tract
CPT/HCPCS: 36415; 80053; 81001; 82962; 85025; 93005

== ENCOUNTER 2023-10-09 07:21 | Day surgery (SDC) | payer MEDICAID ==
[2023-10-07 13:24] LABS: Basophils # (auto) 0 10 ^3/uL (0-0.2); Basophils % (auto) 0.6 % (0.0-2.0); Eosinophils # (auto) 0.2 10 ^3/uL (0-0.8); Eosinophils % (auto) 1.9 % (0.0-7.0); Hematocrit 38.6 % (36.0-46.0); Hemoglobin 12.6 g/dL (12.2-16.2); Lymphocytes # (auto) 0.9 10 ^3/uL (0.4-5.4); Lymphocytes % (auto) 10.6 % (10.0-50.0); Mean Corpuscular Hgb Conc. 32.8 g/dL (32.0-36.0); Mean Corpuscular Volume 91.6 fL (80.0-100.0); Monocytes # (auto) 0.7 10 ^3/uL (0-1.3); Neutrophils # (auto) 6.3 10 ^3/uL (1.6-8.6); Neutrophils % (auto) 77.9 % (37.0-80.0); Nucleated Red Blood Cells % 0.2 %; Red Blood Cells 4.21 10^6/uL (4.0-5.20); Red Cell Distribution Width 14.5 % (11.8-14.3); White Blood Cell 8.1 10^3/uL (4.4-10.8)
[2023-10-07 13:41] LABS: Urine Bacteria NONE SEEN /hpf (None Seen); Urine Blood Negative /uL (Negative); Urine Clarity Clear (Clear); Urine Color Yellow (Yellow); Urine Protein, UAD TRACE (Negative); Urine Specific Gravity 1.017 (1.001-1.035); Urine Urobilinogen Normal (Negative); Urine WBC 60 /hpf (0 - 5); Urine pH 5.5 (5.0-8.0)
[2023-10-07 13:46] LABS: INR 0.99 (0.9-1.15); Partial Thromboplastin Time 30.9 SEC (24.5-34.5); Prothrombin Time 10.4 sec (9.3-11.8)
[2023-10-07 13:58] LABS: Alanine Aminotransferase 22 U/L (7-40); Albumin 4.8 g/dL (3.2-4.8); Alkaline Phosphatase 158 U/L (46-116); Anion Gap 8 (5-15); Aspartate Aminotransferase 16 U/L (13-40); BUN/Creatinine Ratio 21.3 (10.0-20.0); Bilirubin, Total 0.6 mg/dL (0.2-1.0); Blood Urea Nitrogen 19 mg/dL (9-23); Calcium 10.8 mg/dL (8.5-10.1); Carbon Dioxide 24 mmol/L (20-30); Chloride 106 mmol/L (98-107); Glucose 82 mg/dL (74-106); Potassium 4.4 mmol/L (3.5-5.1); Sodium 138 mmol/L (136-145); Total Protein 7.9 g/dL (5.7-8.2)
[~2023-10-09] VITALS: Ht 162.6 cm; Wt 55.8 kg
[~2023-10-09 07:21] MED LIST changes: -ACET300T4 PO; -ASPI-543 PO; -ATOR-47 PO; -B-CO-6 PO; -CALC667C PO; -CLON0.1T PO; -CLON0.2T PO; -FAMO20TA10 PO; -FERR1TAB17 PO; -FOLI1TAB6 PO; -FURO1TAB33 PO; +INSU100I54 SC; -INSUINJ47 IJ; -MIN25T PO; -NIFE90TA49 PO; -PANT40T PO; +PANT40TA2 PO; +PRE5T PO; -SODI650T PO; -SUCR1SUS10 PO; -TERA10CA36 PO; -VALG450T PO
[2023-10-09] MEDS ORDERED: LIDOCAINE W/ EPINEPHRINE 1% 20ML VIAL ONE (07:36)
[2023-10-09] MEDS ORDERED: BUPIVACAINE 0.25% INJ 50ML VIAL ONE (07:36)
[2023-10-09] MEDS ORDERED: MIDAZOLAM HCL 2MG/2ML 2ml VIAL (1mg/ml) ONE (07:49)
[2023-10-09] MEDS ORDERED: PROPOFOL 10 MG/ML 20 ML IV ONE (07:49)
[2023-10-09] MEDS ORDERED: fentaNYL CITRATE 100 MCG/2 ML VL ONE (07:49)
[2023-10-09] MEDS ORDERED: DexAMETHasone SOD PHOS 10MG/1ML VIAL INJ ONE (07:49)
[2023-10-09] MEDS ORDERED: MEPERIDINE HCL (25 MG/ML) 1ML VIAL ONE (07:50)
[2023-10-09] MEDS ORDERED: ceFAZolin 1GM/50ML 100 ML IV ONE (08:10)
[2023-10-09] MEDS ORDERED: POVIDONE IODINE 10 % TOPICAL OINT 30GM TOP ONE (08:43)
[2023-10-09 09:00] VITALS: PULSE 87; RESP 12; TEMP 97.2; O2SAT 96
[2023-10-09] MEDS ORDERED: ONDANSETRON HCL 4 MG/2 ML VIAL IV PRN (09:15)
[2023-10-09] MEDS ORDERED: MORPHINE SULFATE 4 MG/ML SYR/VIAL IV PRN (09:15)
[2023-10-09] MEDS ORDERED: ePHEDrine SULFATE 50 MG/ML AMP IV PRN (09:15)
[2023-10-09] MEDS ORDERED: HYDROmorphone HCL 2 MG/ML VL/or syr IV PRN (09:15)
[2023-10-09] MEDS ORDERED: LABETALOL HCL 5 MG/ML 4ML SYRINGE IV PRN (09:15)
[2023-10-09] MEDS ORDERED: MIDAZOLAM HCL 2MG/2ML 2ml VIAL (1mg/ml) IV PRN (09:15)
[2023-10-09] MEDS ORDERED: HYDROmorphone HCL 2 MG/ML VL/or syr IV ONE ×2 (09:28→09:39)
[2023-10-09 10:02] VITALS: BP 171/99; PULSE 83; RESP 19; O2SAT 96
== END 2023-10-09 10:45 | disposition home or self-care (01) ==
LOC: SUR 07:21
PROVIDERS: ATTEND Surgery
DX: M79.602 Pain in left arm (principal); L92.8 Other granulomatous disorders of the skin and subcutaneous tissue; T82.898A Other specified complication of vascular prosthetic devices, implants and grafts, initial encounter; Y83.8 Other surgical procedures as the cause of abnormal reaction of the patient, or of later complication, without mention of misadventure at the time of the procedure; I13.0 Hypertensive heart and chronic kidney disease with heart failure and stage 1 through stage 4 chronic kidney disease, or unspecified chronic kidney disease; E11.22 Type 2 diabetes mellitus with diabetic chronic kidney disease; N18.9 Chronic kidney disease, unspecified; I50.9 Heart failure, unspecified; F41.8 Other specified anxiety disorders; K21.9 Gastro-esophageal reflux disease without esophagitis; Z99.2 Dependence on renal dialysis; Z87.891 Personal history of nicotine dependence; Z87.01 Personal history of pneumonia (recurrent); Z82.49 Family history of ischemic heart disease and other diseases of the circulatory system; Z83.3 Family history of diabetes mellitus; Z82.5 Family history of asthma and other chronic lower respiratory diseases; Z79.4 Long term (current) use of insulin; Z79.899 Other long term (current) drug therapy; Z98.890 Other specified postprocedural states
CPT/HCPCS: 35903; 36415; 80053; 81001; 82962; 85025; 85610; 85730; 88305; J0690; J1100; J1170; J2175; J2250; J2704; J3010; J3490